=== PATIENT | female | born 1945 | race Caucasian/White ===

== ENCOUNTER 2021-01-19 17:30 | Emergency (ER) | payer OTHER, MEDICARE, BC ==
[2021-01-19] MEDS ORDERED: Acetaminophen 500 MG TAB ONE (18:38)
[2021-01-19 18:46] LABS: #Basophils 0.1 10x3/uL (0.0-0.2); #Eosinphils 0.2 10x3/uL (0.0-0.5); #Monocytes 0.5 10x3/uL (0.0-1.1); #Neutrophils 3.7 10x3/uL (1.5-8.4); %Basophils 0.8 % (0.0-2.0); %Eosinophils 3.6 % (0.0-6.0); %Monocytes 7.7 % (0.0-10.0); %Neutrophils 55.7 % (40.0-75.0); Mean Corpuscular HGB CONC 33.8 g/dL (32.0-36.0); Mean Corpuscular Hemoglobin 30.5 pg (27.0-33.0); Mean Corpuscular Volume 90.3 fl (81.6-98.3); Mean Platelet Volume 9.6 fl (7.4-10.4); Platelet Count 174 10x3/uL (150-450); RBC Distribution Width 13.1 % (11.5-14.5); Red Blood Cell (RBC) Count 3.93 10x6/uL (3.90-5.03); White Blood Cell (WBC) Count 6.6 10x3/uL (3.5-10.5)
[2021-01-19 18:59] LABS: ALT (SGPT) 40 U/L (8-55); AST (SGOT) 42 U/L (5-34); Alkaline Phosphatase 117 U/L (40-110); Anion Gap 12 mmol/L (10-20); BUN (Urea Nitrogen) 11 mg/dL (9.8-20.1); Bilirubin, Total 0.5 mg/dL (0.2-1.2); Calc. Creatinine Clearance 0 mL/min (70-130); Calcium 10.3 mg/dL (7.8-10.44); Carbon Dioxide 27 mmol/L (23-31); Chloride 100 mmol/L (98-107); Globulin 2.4 g/dL (2.4-3.5); Glucose 98 mg/dL (83-110); Protein, Total 6.4 g/dL (5.8-8.1); Sodium 135 mmol/L (136-145)
== END 2021-01-19 19:23 | disposition home or self-care (01) ==
LOC: CSHERS 17:30
DX: S00.12XA Contusion of left eyelid and periocular area, initial encounter (principal); S60.512A Abrasion of left hand, initial encounter; W01.0XXA Fall on same level from slipping, tripping and stumbling without subsequent striking against object, initial encounter; J45.909 Unspecified asthma, uncomplicated; E03.9 Hypothyroidism, unspecified; I10 Essential (primary) hypertension; E87.1 Hypo-osmolality and hyponatremia
CPT/HCPCS: 70450; 72125; 80053; 85025; 93005; 93010

== ENCOUNTER 2021-03-29 10:39 | Outpatient (CLI) | payer MEDICARE, BC | END 2021-03-29 10:40 | disposition home or self-care (01) | LOC: CSHRAD 10:39 | PROVIDERS: ATTEND Neurological Surgery | DX: M54.12 Radiculopathy, cervical region (principal); M47.812 Spondylosis without myelopathy or radiculopathy, cervical region | CPT/HCPCS: 72050 ==

== ENCOUNTER 2021-07-06 19:49 | Inpatient (IN) | payer MEDICARE, BC ==
[2021-07-06 21:20] LABS: #Eosinphils 0.2 10x3/uL (0.0-0.5); #Monocytes 0.5 10x3/uL (0.0-1.1); #Neutrophils 4.7 10x3/uL (1.5-8.4); %Basophils 0.5 % (0.0-2.0); %Eosinophils 2.3 % (0.0-6.0); %Lymphocytes 16.2 % (18.0-47.0); %Monocytes 7.9 % (0.0-10.0); %Neutrophils 72.8 % (40.0-75.0); Hemoglobin 12.7 g/dL (12.0-15.5); Mean Corpuscular HGB CONC 35.1 g/dL (32.0-36.0); Mean Corpuscular Hemoglobin 30.2 pg (27.0-33.0); Mean Corpuscular Volume 86.2 fl (81.6-98.3); Mean Platelet Volume 9.5 fl (7.4-10.4); Platelet Count 166 10x3/uL (150-450); RBC Distribution Width 12.2 % (11.5-14.5); White Blood Cell (WBC) Count 6.4 10x3/uL (3.5-10.5)
[2021-07-06 21:40] LABS: ALT (SGPT) 24 U/L (8-55); AST (SGOT) 32 U/L (5-34); Alkaline Phosphatase 100 U/L (40-110); Anion Gap 16 mmol/L (10-20); BUN (Urea Nitrogen) 15 mg/dL (9.8-20.1); Bilirubin, Total 0.5 mg/dL (0.2-1.2); Calc. Creatinine Clearance 0 mL/min (70-130); Calcium 9.3 mg/dL (7.8-10.44); Carbon Dioxide 29 mmol/L (23-31); Chloride 85 mmol/L (98-107); Globulin 1.9 g/dL (2.4-3.5); Glucose 88 mg/dL (83-110); Potassium 3.7 mmol/L (3.5-5.1); Protein, Total 5.9 g/dL (5.8-8.1); Sodium 126 mmol/L (136-145)
[2021-07-06 21:46] LABS: Magnesium 1.6 mg/dL (1.6-2.6)
[2021-07-07] MEDS: Sodium Chloride 0.9% 1,000 ML IV SCH ×2 (00:18→16:49)
[2021-07-07 00:55] VITALS: BMI 20.2
[2021-07-07 04:29] LABS: #Eosinphils 0.2 10x3/uL (0.0-0.5); #Monocytes 0.6 10x3/uL (0.0-1.1); #Neutrophils 4.9 10x3/uL (1.5-8.4); %Basophils 0.3 % (0.0-2.0); %Eosinophils 2.5 % (0.0-6.0); %Lymphocytes 16.5 % (18.0-47.0); %Monocytes 8.7 % (0.0-10.0); %Neutrophils 71.6 % (40.0-75.0); Hemoglobin 12.2 g/dL (12.0-15.5); Mean Corpuscular HGB CONC 35.4 g/dL (32.0-36.0); Mean Corpuscular Hemoglobin 30.7 pg (27.0-33.0); Mean Corpuscular Volume 86.9 fl (81.6-98.3); Mean Platelet Volume 9.6 fl (7.4-10.4); Platelet Count 146 10x3/uL (150-450); Red Blood Cell (RBC) Count 3.97 10x6/uL (3.90-5.03); White Blood Cell (WBC) Count 6.8 10x3/uL (3.5-10.5)
[2021-07-07 04:53] LABS: Anion Gap 14 mmol/L (10-20); BUN (Urea Nitrogen) 10 mg/dL (9.8-20.1); Calc. Creatinine Clearance 78 mL/min (70-130); Calcium 8.9 mg/dL (7.8-10.44); Carbon Dioxide 28 mmol/L (23-31); Chloride 90 mmol/L (98-107); Glucose 93 mg/dL (83-110); Magnesium 1.4 mg/dL (1.6-2.6); Potassium 3.5 mmol/L (3.5-5.1); Sodium 128 mmol/L (136-145)
[2021-07-07] MEDS ORDERED: Potassium Chloride 20 MEQ in Premix Bag 1 BAG IVPB SCH (05:30)
[2021-07-07] MEDS: Thyroid 30 MG TAB PO SCH (06:21)
[2021-07-07] MEDS: Levothyroxine Sodium 25 MCG TAB PO SCH (06:21)
[2021-07-07] MEDS: Thiamine HCl 200 MG/2 ML VIAL SLOW IVP SCH ×2 (06:30→18:03)
[2021-07-07] MEDS ORDERED: RED YEAST RICE 600 MG PO SCH (09:00)
[2021-07-07] MEDS: Stress 600 With Zinc 1 TAB PO SCH ×2 (09:18→20:22)
[2021-07-07] MEDS: Multivit, Therapeutic 1 TAB PO SCH (09:18)
[2021-07-07] MEDS: Loratadine 10 MG TAB PO SCH (09:18)
[2021-07-07] MEDS: Ubidecarenone 50 MG CAP PO SCH (09:18)
[2021-07-07] MEDS: Amlodipine 5 MG TAB PO SCH (09:18)
[2021-07-07] MEDS: Bupropion 150 MG XL TAB PO SCH (09:18)
[2021-07-07] MEDS ORDERED: hydrALAZINE 20 MG/ML VIAL SLOW IVP PRN (10:19)
[2021-07-07] MEDS ORDERED: Magnesium 2 GM/50 ML(in water) 2 GM in Premix Bag 1 BAG IVPB SCH (10:30)
[2021-07-07] MEDS ORDERED: Potassium Chloride 20 MEQ TAB PO SCH (10:30)
[2021-07-07] MEDS: Enoxaparin Sodium 40 MG/0.4 ML SYRINGE SC SCH (11:10)
[2021-07-07 13:20] LABS: Bilirubin Neg (Negative); Blood, Urine Negative (Negative); Clarity Clear (Clear); Glucose, Urine (Dipstick) Normal (Negative); Ketone, Urine 5 mg/dL (Negative); Leukocyte Negative (Negative); Nitrite Negative (Negative); Protein, Urine (Dipstick) Negative (Neg-Trace); Urobilinogen Normal mg/dL (Less than 2)
[2021-07-07 13:22] LABS: Urine Culture Reflex No No
[2021-07-07 14:15] LABS: RBC/HPF 0-3 HPF (0-3); Squamous Epithelial 0-3 HPF (0-3); WBC/HPF 0-3 HPF (0-3)
[2021-07-07 14:16] LABS: Bacteria/HPF 1+ HPF (None Seen)
[2021-07-07] MEDS: Pramipexole Di-HCl 1 MG TAB PO SCH (20:22)
[2021-07-07] MEDS: Montelukast Sodium 10 mg Tablet PO SCH (20:22)
[2021-07-08 04:43] LABS: #Eosinphils 0.2 10x3/uL (0.0-0.5); #Monocytes 0.5 10x3/uL (0.0-1.1); #Neutrophils 3.2 10x3/uL (1.5-8.4); %Basophils 0.6 % (0.0-2.0); %Eosinophils 3.2 % (0.0-6.0); %Lymphocytes 23.2 % (18.0-47.0); %Monocytes 9.6 % (0.0-10.0); Hemoglobin 12.2 g/dL (12.0-15.5); Mean Corpuscular HGB CONC 35.1 g/dL (32.0-36.0); Mean Corpuscular Hemoglobin 30.6 pg (27.0-33.0); Mean Corpuscular Volume 87.2 fl (81.6-98.3); Mean Platelet Volume 9.4 fl (7.4-10.4); Platelet Count 157 10x3/uL (150-450); RBC Distribution Width 12.2 % (11.5-14.5); Red Blood Cell (RBC) Count 3.99 10x6/uL (3.90-5.03)
[2021-07-08 05:02] LABS: Anion Gap 14 mmol/L (10-20); BUN (Urea Nitrogen) 6 mg/dL (9.8-20.1); Calc. Creatinine Clearance 74 mL/min (70-130); Calcium 8.8 mg/dL (7.8-10.44); Carbon Dioxide 29 mmol/L (23-31); Chloride 93 mmol/L (98-107); Glucose 80 mg/dL (83-110); Potassium 3.9 mmol/L (3.5-5.1); Sodium 132 mmol/L (136-145)
[2021-07-08] MEDS: Thiamine HCl 200 MG/2 ML VIAL SLOW IVP SCH ×2 (06:47→20:59)
[2021-07-08] MEDS: Levothyroxine Sodium 25 MCG TAB PO SCH (06:48)
[2021-07-08] MEDS: Thyroid 30 MG TAB PO SCH (06:48)
[2021-07-08] MEDS: Sodium Chloride 0.9% 1,000 ML IV SCH (07:44)
[2021-07-08] MEDS ORDERED: Meclizine HCl 25 MG TAB PO PRN (08:04)
[2021-07-08] MEDS ORDERED: Meclizine HCl 12.5 MG TAB PO SCH (08:15)
[2021-07-08] MEDS ORDERED: Meclizine HCl 12.5 MG TAB PO PRN (08:15)
[2021-07-08] MEDS: Ubidecarenone 50 MG CAP PO SCH (08:43)
[2021-07-08] MEDS: Enoxaparin Sodium 40 MG/0.4 ML SYRINGE SC SCH (08:44)
[2021-07-08] MEDS: Bupropion 150 MG XL TAB PO SCH (08:44)
[2021-07-08] MEDS: Amlodipine 5 MG TAB PO SCH (08:44)
[2021-07-08] MEDS: Megestrol Acetate 400 MG/10 ML UDCUP PO SCH (08:44)
[2021-07-08] MEDS: Loratadine 10 MG TAB PO SCH (08:45)
[2021-07-08] MEDS: Multivit, Therapeutic 1 TAB PO SCH (08:45)
[2021-07-08] MEDS: Stress 600 With Zinc 1 TAB PO SCH ×2 (08:46→20:55)
[2021-07-08 13:40] LABS: Potassium, Urine 11.9 mmol/L
[2021-07-08] MEDS: Pramipexole Di-HCl 1 MG TAB PO SCH (20:55)
[2021-07-08] MEDS: Montelukast Sodium 10 mg Tablet PO SCH (20:55)
[2021-07-09] MEDS ORDERED: Melatonin 3 MG TAB PO SCH (01:00)
[2021-07-09] MEDS: Thiamine HCl 200 MG/2 ML VIAL SLOW IVP SCH ×2 (06:47→21:07)
[2021-07-09] MEDS: Levothyroxine Sodium 25 MCG TAB PO SCH (06:47)
[2021-07-09] MEDS: Thyroid 30 MG TAB PO SCH (06:47)
[2021-07-09] MEDS: Sodium Chloride 0.9% 1,000 ML IV SCH ×2 (08:13→21:57)
[2021-07-09 08:34] LABS: #Eosinphils 0.1 10x3/uL (0.0-0.5); #Monocytes 0.6 10x3/uL (0.0-1.1); #Neutrophils 3.7 10x3/uL (1.5-8.4); %Basophils 0.5 % (0.0-2.0); %Lymphocytes 26.1 % (18.0-47.0); %Monocytes 9.2 % (0.0-10.0); %Neutrophils 61.9 % (40.0-75.0); Hemoglobin 12.3 g/dL (12.0-15.5); Mean Corpuscular HGB CONC 36.5 g/dL (32.0-36.0); Mean Corpuscular Hemoglobin 30.4 pg (27.0-33.0); Mean Corpuscular Volume 83.2 fl (81.6-98.3); Mean Platelet Volume 9.2 fl (7.4-10.4); Platelet Count 148 10x3/uL (150-450); RBC Distribution Width 12.2 % (11.5-14.5); Red Blood Cell (RBC) Count 4.05 10x6/uL (3.90-5.03)
[2021-07-09 08:51] LABS: Anion Gap 12 mmol/L (10-20); BUN (Urea Nitrogen) 9 mg/dL (9.8-20.1); Calc. Creatinine Clearance 74 mL/min (70-130); Carbon Dioxide 29 mmol/L (23-31); Chloride 91 mmol/L (98-107); Glucose 100 mg/dL (83-110); Magnesium 1.6 mg/dL (1.6-2.6); Sodium 128 mmol/L (136-145)
[2021-07-09] MEDS ORDERED: Iopamidol 370 76% 100 ML VIAL ONE (09:22)
[2021-07-09] MEDS: Amlodipine 5 MG TAB PO SCH (10:00)
[2021-07-09] MEDS: Ubidecarenone 50 MG CAP PO SCH (10:00)
[2021-07-09] MEDS: Multivit, Therapeutic 1 TAB PO SCH (10:00)
[2021-07-09] MEDS: Enoxaparin Sodium 40 MG/0.4 ML SYRINGE SC SCH (10:01)
[2021-07-09] MEDS: Bupropion 150 MG XL TAB PO SCH (10:14)
[2021-07-09] MEDS: Loratadine 10 MG TAB PO SCH (10:14)
[2021-07-09] MEDS: Stress 600 With Zinc 1 TAB PO SCH ×2 (10:15→21:38)
[2021-07-09] MEDS: Megestrol Acetate 400 MG/10 ML UDCUP PO SCH (13:50)
[2021-07-09] MEDS ORDERED: Furosemide 40 MG/4 ML VIAL SLOW IVP SCH (16:00)
[2021-07-09] MEDS: Montelukast Sodium 10 mg Tablet PO SCH (21:38)
[2021-07-09] MEDS: Pramipexole Di-HCl 1 MG TAB PO SCH (21:38)
[2021-07-09] MEDS ORDERED: Melatonin 3 MG TAB PO PRN (22:01)
[2021-07-09] MEDS ORDERED: traZODone HCl 50 MG TAB PO SCH (22:45)
[2021-07-10] MEDS: Thiamine HCl 200 MG/2 ML VIAL SLOW IVP SCH ×2 (05:31→18:32)
[2021-07-10] MEDS: Thyroid 30 MG TAB PO SCH (05:32)
[2021-07-10] MEDS: Levothyroxine Sodium 25 MCG TAB PO SCH (05:32)
[2021-07-10 07:01] LABS: Anion Gap 17 mmol/L (10-20); BUN (Urea Nitrogen) 9 mg/dL (9.8-20.1); Calc. Creatinine Clearance 71 mL/min (70-130); Calcium 9.2 mg/dL (7.8-10.44); Carbon Dioxide 29 mmol/L (23-31); Chloride 90 mmol/L (98-107); Glucose 79 mg/dL (83-110); Potassium 4.2 mmol/L (3.5-5.1); Sodium 132 mmol/L (136-145)
[2021-07-10 07:16] LABS: Mean Corpuscular HGB CONC 36.7 g/dL (32.0-36.0); Mean Corpuscular Hemoglobin 30.6 pg (27.0-33.0); Mean Corpuscular Volume 83.3 fl (81.6-98.3); Mean Platelet Volume 10.4 fl (7.4-10.4); RBC Distribution Width 12.4 % (11.5-14.5); Red Blood Cell (RBC) Count 4.25 10x6/uL (3.90-5.03); White Blood Cell (WBC) Count 8.1 10x3/uL (3.5-10.5)
[2021-07-10 07:17] LABS: #Eosinphils 0.3 10x3/uL (0.0-0.5); #Monocytes 0.6 10x3/uL (0.0-1.1); #Neutrophils 5.6 10x3/uL (1.5-8.4); %Basophils 0.5 % (0.0-2.0); %Eosinophils 4.2 % (0.0-6.0); %Lymphocytes 18.6 % (18.0-47.0); %Monocytes 7.8 % (0.0-10.0); %Neutrophils 68.5 % (40.0-75.0)
[2021-07-10 07:18] LABS: Platelet Count 127 10x3/uL (150-450)
[2021-07-10] MEDS: Multivit, Therapeutic 1 TAB PO SCH (08:35)
[2021-07-10] MEDS: Ubidecarenone 50 MG CAP PO SCH (08:35)
[2021-07-10] MEDS: Loratadine 10 MG TAB PO SCH (08:35)
[2021-07-10] MEDS: Stress 600 With Zinc 1 TAB PO SCH ×2 (08:36→21:52)
[2021-07-10] MEDS: Megestrol Acetate 400 MG/10 ML UDCUP PO SCH (08:36)
[2021-07-10] MEDS: Enoxaparin Sodium 40 MG/0.4 ML SYRINGE SC SCH (08:36)
[2021-07-10] MEDS: Amlodipine 5 MG TAB PO SCH (08:36)
[2021-07-10] MEDS: Bupropion 150 MG XL TAB PO SCH (08:36)
[2021-07-10] MEDS: Furosemide 40 MG/4 ML VIAL SLOW IVP SCH (08:36)
[2021-07-10] MEDS ORDERED: Furosemide 40 MG/4 ML VIAL SLOW IVP SCH (09:00)
[2021-07-10] MEDS ORDERED: Melatonin 3 MG TAB PO SCH (21:00)
[2021-07-10] MEDS: Montelukast Sodium 10 mg Tablet PO SCH (21:52)
[2021-07-11] MEDS: Thiamine HCl 200 MG/2 ML VIAL SLOW IVP SCH (05:19)
[2021-07-11] MEDS: Thyroid 30 MG TAB PO SCH (05:19)
[2021-07-11] MEDS: Levothyroxine Sodium 25 MCG TAB PO SCH (05:19)
[2021-07-11] MEDS: Loratadine 10 MG TAB PO SCH (09:22)
[2021-07-11] MEDS: Amlodipine 5 MG TAB PO SCH (09:22)
[2021-07-11] MEDS: Megestrol Acetate 400 MG/10 ML UDCUP PO SCH (09:22)
[2021-07-11] MEDS: Furosemide 40 MG/4 ML VIAL SLOW IVP SCH (09:22)
[2021-07-11] MEDS: Enoxaparin Sodium 40 MG/0.4 ML SYRINGE SC SCH (09:22)
[2021-07-11] MEDS: Multivit, Therapeutic 1 TAB PO SCH (09:22)
[2021-07-11] MEDS: Ubidecarenone 50 MG CAP PO SCH (09:22)
[2021-07-11] MEDS: Stress 600 With Zinc 1 TAB PO SCH (09:22)
[2021-07-11 13:32] VITALS: TEMP 97.7
[2021-07-11 16:20] VITALS: BP 112/58
== END 2021-07-11 19:15 | DRG 92 ==
LOC: CSHERS 19:49 → OBSVTOIN 23:46 → CSHTELE 23:46
PROVIDERS: ADMIT Family Medicine; ATTEND Family Medicine
DX: G92.8 Other toxic encephalopathy (principal); E87.1 Hypo-osmolality and hyponatremia; J98.11 Atelectasis; N39.0 Urinary tract infection, site not specified; G95.9 Disease of spinal cord, unspecified; E44.0 Moderate protein-calorie malnutrition; E78.5 Hyperlipidemia, unspecified; I10 Essential (primary) hypertension; R53.81 Other malaise; R29.6 Repeated falls; G47.00 Insomnia, unspecified; E03.9 Hypothyroidism, unspecified; F32.A Depression, unspecified; E86.0 Dehydration; R40.0 Somnolence; R09.02 Hypoxemia; R45.1 Restlessness and agitation; E87.70 Fluid overload, unspecified; F03.90 Unspecified dementia, unspecified severity, without behavioral disturbance, psychotic disturbance, mood disturbance, and anxiety; T50.995A Adverse effect of other drugs, medicaments and biological substances, initial encounter; Z20.822 Contact with and (suspected) exposure to COVID-19; Z98.890 Other specified postprocedural states; Z98.1 Arthrodesis status; Z79.899 Other long term (current) drug therapy; Z79.890 Hormone replacement therapy; Z88.2 Allergy status to sulfonamides; Z88.1 Allergy status to other antibiotic agents; Z88.5 Allergy status to narcotic agent; Z88.0 Allergy status to penicillin; Z88.8 Allergy status to other drugs, medicaments and biological substances; Z91.018 Allergy to other foods; Z91.81 History of falling; Z90.710 Acquired absence of both cervix and uterus; Z68.20 Body mass index [BMI] 20.0-20.9, adult
CPT/HCPCS: 36415; 36416; 70450; 70551; 71045; 71275; 72125; 80048; 80053; 81001; 82436; 83735; 83930; 83935; 84133; 84300; 84443; 85025; 87086; 94760; 94799; 96360; 96361; 96374; 96375; 99213; G0378; G0463; J1650; J1940; J1956; J3411; J3475; J3480; J3490; J7050; Q9967; U0003; U0005

== ENCOUNTER 2021-07-12 23:41 | Inpatient (IN) | payer MEDICARE, BC ==
[2021-07-13 00:32] LABS: #Basophils 0.1 10x3/uL (0.0-0.2); #Eosinphils 1.2 10x3/uL (0.0-0.5); #Monocytes 0.6 10x3/uL (0.0-1.1); #Neutrophils 4.3 10x3/uL (1.5-8.4); %Basophils 0.7 % (0.0-2.0); %Eosinophils 15.3 % (0.0-6.0); %Lymphocytes 19.4 % (18.0-47.0); %Monocytes 7.9 % (0.0-10.0); %Neutrophils 56.4 % (40.0-75.0); Hemoglobin 13.8 g/dL (12.0-15.5); Mean Corpuscular Hemoglobin 30.5 pg (27.0-33.0); Mean Platelet Volume 9.1 fl (7.4-10.4); Platelet Count 208 10x3/uL (150-450); RBC Distribution Width 11.9 % (11.5-14.5); Red Blood Cell (RBC) Count 4.53 10x6/uL (3.90-5.03); White Blood Cell (WBC) Count 7.6 10x3/uL (3.5-10.5)
[2021-07-13 00:46] LABS: Acetaminophen Less than 10.0 mcg/mL (10.0-30.0); Alcohol Less than 10 mg/dL (Less than 10); CK (CPK) 38 U/L (29-168); Lipase 16 U/L (8-78); Salicylate Less than 8.0 mg/dL (15.0-30.0)
[2021-07-13 00:47] LABS: ALT (SGPT) 24 U/L (8-55); AST (SGOT) 27 U/L (5-34); Albumin 4.3 g/dL (3.4-4.8); Alkaline Phosphatase 97 U/L (40-110); Anion Gap 15 mmol/L (10-20); BUN (Urea Nitrogen) 15 mg/dL (9.8-20.1); Bilirubin, Total 0.6 mg/dL (0.2-1.2); Calc. Creatinine Clearance 0 mL/min (70-130); Calcium 9.9 mg/dL (7.8-10.44); Carbon Dioxide 36 mmol/L (23-31); Chloride 80 mmol/L (98-107); Globulin 2.3 g/dL (2.4-3.5); Glucose 112 mg/dL (83-110); Potassium 3.8 mmol/L (3.5-5.1); Protein, Total 6.6 g/dL (5.8-8.1); Sodium 127 mmol/L (136-145)
[2021-07-13 01:20] LABS: Actual Bicarbonate (HCO3a) 36.6 mEq/L (22-28); Base Excess (BEa) 9.3 mEq/L (-2.0 to +3.0); CO2 Tension 61.8 mmHg (35.0-45.0); Carboxyhemoglobin (COHb) 0.6 gm% (0.0-3.0); Hemoglobin (Hb) 13.6 g/dL (12.0-16.0); O2 Tension (PaO2), arterial 69.5 mmHg (> 70.0); Potassium - ABG Lab 3.7 mmol/L (3.70-5.30); Puncture Site LRA; pH, Arterial 7.39 (7.35-7.45)
[2021-07-13 01:26] LABS: Bilirubin Neg (Negative); Blood, Urine 10 (Negative); Clarity Clear (Clear); Glucose, Urine (Dipstick) Normal (Negative); Ketone, Urine Negative (Negative); Leukocyte 500 (Negative); Nitrite Negative (Negative); Protein, Urine (Dipstick) 15 mg/dl (Neg-Trace); Urobilinogen Normal mg/dL (Less than 2)
[2021-07-13 01:33] LABS: Amphetamine Not Detected (NotDetected); Barbiturates Screen Not Detected (NotDetected); Benzodiazepine Screen Not Detected (NotDetected); Cocaine Metabolite Screen Not Detected (NotDetected); Methadone Not Detected (NotDetected); Methamphetamine Not Detected (NotDetected); Opiate Screen Not Detected (NotDetected); Oxycodone Screen Not Detected (NotDetected); Phencyclidine (PCP) Not Detected (NotDetected); THC/Cannabinoid Screen Not Detected (NotDetected); Tricyclic Screen Not Detected (NotDetected)
[2021-07-13 01:37] LABS: Bacteria/HPF Rare-Few HPF (None Seen); RBC/HPF 0-3 HPF (0-3); Renal Epithelial 0-3 HPF (None Seen); Transitional Epithelial 0-3 HPF (None Seen); WBC/HPF 21-50 HPF (0-3)
[2021-07-13 02:16] LABS: SARS-CoV-2 NAA Rapid Test Not Detected (NotDetected)
[2021-07-13] MEDS ORDERED: Senokot S 8.6-50 MG TAB PO PRN (02:20)
[2021-07-13] MEDS ORDERED: Ondansetron PF 4 MG/2 ML Vial IVP PRN (02:20)
[2021-07-13] MEDS ORDERED: Calcium Carbonate 500 MG ChewTAB PO PRN (02:20)
[2021-07-13] MEDS ORDERED: Acetaminophen 325 MG TAB PO PRN (02:20)
[2021-07-13] MEDS ORDERED: Aspirin 300 MG Suppository ONE ×2 (02:23→02:24)
[2021-07-13] MEDS ORDERED: cefTRIAXone\\ROCEPHIN 1 GM VIAL ONE (02:27)
[2021-07-13] MEDS ORDERED: Levofloxacin 500 mg/D5W 100 ml Premix Bag ONE (04:47)
[2021-07-13 04:51] LABS: Legionella Urinary Ag Negative (Negative); Strep pneumo Urine Ag NEGATIVE (NEGATIVE)
[2021-07-13] MEDS: Levothyroxine Sodium 25 MCG TAB PO SCH (05:22)
[2021-07-13 07:58] LABS: Actual Bicarbonate (HCO3a) 35.3 mEq/L (22-28); Base Excess (BEa) 8.2 mEq/L (-2.0 to +3.0); CO2 Tension 61.1 mmHg (35.0-45.0); Calcium, Ionized (arterial) 1.19 mmol/L (1.12-1.30); Carboxyhemoglobin (COHb) 0.6 gm% (0.0-3.0); Hemoglobin (Hb) 12.3 g/dL (12.0-16.0); O2 Tension (PaO2), arterial 86.1 mmHg (> 70.0); Potassium - ABG Lab 3.7 mmol/L (3.70-5.30); Puncture Site LRA; pH, Arterial 7.38 (7.35-7.45)
[2021-07-13 08:00] LABS: ALV-art Gradient 51.425 mmHg (0-20)
[2021-07-13] MEDS: Enoxaparin Sodium 40 MG/0.4 ML SYRINGE SC SCH (09:05)
[2021-07-13] MEDS: Famotidine/PF 20 mg/2ml Vial SLOW IVP SCH ×2 (09:15→21:52)
[2021-07-13] MEDS: Amlodipine 5 MG TAB PO SCH (09:28)
[2021-07-13] MEDS: Ubidecarenone 50 MG CAP PO SCH (09:29)
[2021-07-13] MEDS: Multivit, Therapeutic 1 TAB PO SCH (09:30)
[2021-07-13] MEDS: Stress 600 With Zinc 1 TAB PO SCH ×2 (09:30→21:52)
[2021-07-13 11:56] LABS: Anion Gap 13 mmol/L (10-20); BUN (Urea Nitrogen) 15 mg/dL (9.8-20.1); Calc. Creatinine Clearance 71 mL/min (70-130); Calcium 9.1 mg/dL (7.8-10.44); Carbon Dioxide 30 mmol/L (23-31); Chloride 85 mmol/L (98-107); Glucose 94 mg/dL (83-110); Magnesium 1.7 mg/dL (1.6-2.6); Potassium 3.9 mmol/L (3.5-5.1); Sodium 124 mmol/L (136-145)
[2021-07-13 17:01] LABS: Sodium 126 mmol/L (136-145)
[2021-07-13] MEDS: Montelukast Sodium 10 mg Tablet PO SCH (21:52)
[2021-07-14] MEDS ORDERED: Levofloxacin 500 mg/D5W 100 ml Premix Bag ONE (02:47)
[2021-07-14] MEDS: Levothyroxine Sodium 25 MCG TAB PO SCH (06:35)
[2021-07-14 08:05] LABS: Anion Gap 14 mmol/L (10-20); BUN (Urea Nitrogen) 10 mg/dL (9.8-20.1); Calc. Creatinine Clearance 85 mL/min (70-130); Calcium 9.1 mg/dL (7.8-10.44); Carbon Dioxide 32 mmol/L (23-31); Chloride 86 mmol/L (98-107); Glucose 91 mg/dL (83-110); Potassium 3.9 mmol/L (3.5-5.1); Sodium 128 mmol/L (136-145)
[2021-07-14] MEDS: Ubidecarenone 50 MG CAP PO SCH (08:40)
[2021-07-14] MEDS: Famotidine/PF 20 mg/2ml Vial SLOW IVP SCH ×2 (08:40→20:05)
[2021-07-14] MEDS: Stress 600 With Zinc 1 TAB PO SCH ×2 (08:40→20:05)
[2021-07-14] MEDS: Enoxaparin Sodium 40 MG/0.4 ML SYRINGE SC SCH (08:41)
[2021-07-14] MEDS: Multivit, Therapeutic 1 TAB PO SCH (08:41)
[2021-07-14] MEDS: Amlodipine 5 MG TAB PO SCH (08:41)
[2021-07-14 10:51] LABS: Actual Bicarbonate (HCO3a) 34.1 mEq/L (22-28); Base Excess (BEa) 8.1 mEq/L (-2.0 to +3.0); CO2 Tension 53.6 mmHg (35.0-45.0); Calcium, Ionized (arterial) 1.17 mmol/L (1.12-1.30); Carboxyhemoglobin (COHb) 1.1 gm% (0.0-3.0); Hemoglobin (Hb) 13.4 g/dL (12.0-16.0); Potassium - ABG Lab 3.7 mmol/L (3.70-5.30); Puncture Site LRA; pH, Arterial 7.42 (7.35-7.45)
[2021-07-14] MEDS: Montelukast Sodium 10 mg Tablet PO SCH (20:05)
[2021-07-15] MEDS ORDERED: Levofloxacin 500 mg/D5W 100 ml Premix Bag ONE ×2 (03:49)
[2021-07-15 04:43] LABS: Anion Gap 12 mmol/L (10-20); BUN (Urea Nitrogen) 17 mg/dL (9.8-20.1); Calc. Creatinine Clearance 77 mL/min (70-130); Calcium 9.5 mg/dL (7.8-10.44); Carbon Dioxide 33 mmol/L (23-31); Chloride 86 mmol/L (98-107); Glucose 95 mg/dL (83-110); Sodium 127 mmol/L (136-145)
[2021-07-15] MEDS: Levothyroxine Sodium 25 MCG TAB PO SCH (06:47)
[2021-07-15] MEDS: Ubidecarenone 50 MG CAP PO SCH (08:46)
[2021-07-15] MEDS: Amlodipine 5 MG TAB PO SCH (08:47)
[2021-07-15] MEDS: Multivit, Therapeutic 1 TAB PO SCH (08:47)
[2021-07-15] MEDS: Famotidine/PF 20 mg/2ml Vial SLOW IVP SCH ×2 (08:49→22:16)
[2021-07-15] MEDS: Enoxaparin Sodium 40 MG/0.4 ML SYRINGE SC SCH (08:49)
[2021-07-15] MEDS: Stress 600 With Zinc 1 TAB PO SCH ×2 (09:12→22:18)
[2021-07-15 11:30] LABS: Base Excess (BEa) 9.4 mEq/L (-2.0 to +3.0); CO2 Tension 65.6 mmHg (35.0-45.0); Carboxyhemoglobin (COHb) 0.4 gm% (0.0-3.0); Hemoglobin (Hb) 12.4 g/dL (12.0-16.0); O2 Tension (PaO2), arterial 102.7 mmHg (> 70.0); Potassium - ABG Lab 3.7 mmol/L (3.70-5.30); Puncture Site RRA; pH, Arterial 7.37 (7.35-7.45)
[2021-07-15 13:32] LABS: Lactic Acid 1.1 mmol/L (0.5-2.2)
[2021-07-15 14:28] LABS: Anion Gap 17 mmol/L (10-20); BUN (Urea Nitrogen) 17 mg/dL (9.8-20.1); Calc. Creatinine Clearance 72 mL/min (70-130); Calcium 9.4 mg/dL (7.8-10.44); Carbon Dioxide 26 mmol/L (23-31); Chloride 88 mmol/L (98-107); Glucose 96 mg/dL (83-110); Potassium 4.3 mmol/L (3.5-5.1); Sodium 127 mmol/L (136-145)
[2021-07-15 15:02] LABS: Bilirubin Neg (Negative); Blood, Urine 150 (Negative); Clarity Clear (Clear); Glucose, Urine (Dipstick) Normal (Negative); Ketone, Urine 5 mg/dL (Negative); Leukocyte 100 (Negative); Nitrite Negative (Negative); Protein, Urine (Dipstick) 15 mg/dl (Neg-Trace)
[2021-07-15 15:16] LABS: Squamous Epithelial 0-3 HPF (0-3); Urine Culture Reflex No No; WBC/HPF 0-3 HPF (0-3)
[2021-07-15 15:17] LABS: Bacteria/HPF None Seen HPF (None Seen)
[2021-07-15] MEDS: Sodium Chloride 0.9% 1,000 ML IV SCH (16:20)
[2021-07-15 19:01] LABS: Actual Bicarbonate (HCO3v) 37 mEq/L (22-28); Base Excess 9.8 mEq/L (-2.0 to +3.0); Chloride (VBG) 86 mmol/L (98-106); Hemoglobin (Hb) 12.8 g/dL (11.7-16.1); Potassium (VBG) 4.11 mmol/L (3.70-5.30); Sodium 123.3 mmol/L (133-146); pH (venous) 7.41 (7.32-7.43)
[2021-07-15 19:09] LABS: Calcium, Ionized (venous) 1.12 mmol/L (1.16-1.32)
[2021-07-15] MEDS: Montelukast Sodium 10 mg Tablet PO SCH (22:16)
[2021-07-16 04:27] LABS: #Eosinphils 0.2 10x3/uL (0.0-0.5); #Monocytes 0.9 10x3/uL (0.0-1.1); #Neutrophils 5.2 10x3/uL (1.5-8.4); %Basophils 0.5 % (0.0-2.0); %Eosinophils 1.8 % (0.0-6.0); %Lymphocytes 24.7 % (18.0-47.0); %Monocytes 10.4 % (0.0-10.0); %Neutrophils 61.3 % (40.0-75.0); Hemoglobin 11.6 g/dL (12.0-15.5); Mean Corpuscular Hemoglobin 30.5 pg (27.0-33.0); Mean Corpuscular Volume 84.7 fl (81.6-98.3); Mean Platelet Volume 10.1 fl (7.4-10.4); White Blood Cell (WBC) Count 8.5 10x3/uL (3.5-10.5)
[2021-07-16 04:29] LABS: Platelet Count 178 10x3/uL (150-450)
[2021-07-16 04:44] LABS: Anion Gap 16 mmol/L (10-20); BUN (Urea Nitrogen) 17 mg/dL (9.8-20.1); Calc. Creatinine Clearance 79 mL/min (70-130); Calcium 8.9 mg/dL (7.8-10.44); Carbon Dioxide 27 mmol/L (23-31); Chloride 90 mmol/L (98-107); Glucose 79 mg/dL (83-110); Potassium 4.7 mmol/L (3.5-5.1); Sodium 128 mmol/L (136-145)
[2021-07-16 04:46] LABS: Platelet Morphology Comment Appears Adequate; RBC Morphology Normal
[2021-07-16] MEDS: Sodium Chloride 0.9% 1,000 ML IV SCH ×2 (05:54→18:07)
[2021-07-16] MEDS: Levothyroxine Sodium 25 MCG TAB PO SCH (05:59)
[2021-07-16] MEDS: Famotidine/PF 20 mg/2ml Vial SLOW IVP SCH ×2 (08:37→20:46)
[2021-07-16] MEDS: Multivit, Therapeutic 1 TAB PO SCH (08:37)
[2021-07-16] MEDS: Amlodipine 5 MG TAB PO SCH (08:37)
[2021-07-16] MEDS: Enoxaparin Sodium 40 MG/0.4 ML SYRINGE SC SCH (08:37)
[2021-07-16] MEDS: Ubidecarenone 50 MG CAP PO SCH (08:37)
[2021-07-16] MEDS: Stress 600 With Zinc 1 TAB PO SCH ×2 (08:38→20:46)
[2021-07-16] MEDS: Montelukast Sodium 10 mg Tablet PO SCH (20:46)
[2021-07-17] MEDS: Levothyroxine Sodium 25 MCG TAB PO SCH (07:33)
[2021-07-17] MEDS: Ubidecarenone 50 MG CAP PO SCH (08:10)
[2021-07-17] MEDS: Multivit, Therapeutic 1 TAB PO SCH (08:10)
[2021-07-17] MEDS: Famotidine/PF 20 mg/2ml Vial SLOW IVP SCH ×2 (08:10→19:45)
[2021-07-17] MEDS: Enoxaparin Sodium 40 MG/0.4 ML SYRINGE SC SCH (08:11)
[2021-07-17] MEDS: Sodium Chloride 0.9% 1,000 ML IV SCH ×2 (08:11→23:00)
[2021-07-17] MEDS: Stress 600 With Zinc 1 TAB PO SCH ×2 (08:11→19:45)
[2021-07-17] MEDS: Amlodipine 5 MG TAB PO SCH (08:12)
[2021-07-17 12:12] LABS: ANA Symphony (Qualitative) Negative (Negative); ANA Symphony (Quantitative) Less than 0.1 Ratio (< 0.7 Negative); dsDNA IgG Antibody 1.1 IU/mL (<10 Negative)
[2021-07-17] MEDS: Montelukast Sodium 10 mg Tablet PO SCH (19:45)
[2021-07-18] MEDS: Levothyroxine Sodium 25 MCG TAB PO SCH (06:42)
[2021-07-18] MEDS: Famotidine/PF 20 mg/2ml Vial SLOW IVP SCH ×2 (08:11→22:57)
[2021-07-18] MEDS: Enoxaparin Sodium 40 MG/0.4 ML SYRINGE SC SCH (08:11)
[2021-07-18] MEDS: Ubidecarenone 50 MG CAP PO SCH (08:12)
[2021-07-18] MEDS: Multivit, Therapeutic 1 TAB PO SCH (08:12)
[2021-07-18] MEDS: Stress 600 With Zinc 1 TAB PO SCH ×2 (08:12→22:57)
[2021-07-18] MEDS: Amlodipine 5 MG TAB PO SCH (08:12)
[2021-07-18] MEDS: Sodium Chloride 0.9% 1,000 ML IV SCH (14:20)
[2021-07-18 15:10] LABS: Anion Gap 13 mmol/L (10-20); BUN (Urea Nitrogen) 10 mg/dL (9.8-20.1); Calc. Creatinine Clearance 93 mL/min (70-130); Calcium 8.7 mg/dL (7.8-10.44); Carbon Dioxide 24 mmol/L (23-31); Chloride 99 mmol/L (98-107); Glucose 90 mg/dL (83-110); Sodium 132 mmol/L (136-145)
[2021-07-18] MEDS ORDERED: Dexmedetomidine In 0.9 % NaCl 100 ML ONE (22:04)
[2021-07-18] MEDS: Dexmedetomidine In 0.9 % NaCl 400 MCG in Premix Bag 1 BAG IVPB PRN (22:10)
[2021-07-18] MEDS: Montelukast Sodium 10 mg Tablet PO SCH (22:57)
[2021-07-19 03:53] LABS: Anion Gap 11 mmol/L (10-20); BUN (Urea Nitrogen) 10 mg/dL (9.8-20.1); Calc. Creatinine Clearance 101 mL/min (70-130); Calcium 8.6 mg/dL (7.8-10.44); Carbon Dioxide 27 mmol/L (23-31); Chloride 98 mmol/L (98-107); Glucose 87 mg/dL (83-110); Sodium 132 mmol/L (136-145)
[2021-07-19] MEDS: Sodium Chloride 0.9% 1,000 ML IV SCH ×2 (05:09→12:12)
[2021-07-19] MEDS: Levothyroxine Sodium 25 MCG TAB PO SCH (06:44)
[2021-07-19] MEDS: Amlodipine 5 MG TAB PO SCH (08:13)
[2021-07-19] MEDS: Enoxaparin Sodium 40 MG/0.4 ML SYRINGE SC SCH (08:13)
[2021-07-19] MEDS: Stress 600 With Zinc 1 TAB PO SCH ×2 (08:14→21:27)
[2021-07-19] MEDS: Ubidecarenone 50 MG CAP PO SCH (08:14)
[2021-07-19] MEDS: Multivit, Therapeutic 1 TAB PO SCH (08:14)
[2021-07-19] MEDS: Famotidine/PF 20 mg/2ml Vial SLOW IVP SCH ×2 (08:15→22:26)
[2021-07-19] MEDS ORDERED: PROPOFOL 20 ML ONE (11:43)
[2021-07-19] MEDS ORDERED: Fentanyl 100 MCG/2 ML VIAL ONE (11:43)
[2021-07-19] MEDS ORDERED: Ondansetron PF 4 MG/2 ML Vial ONE (11:48)
[2021-07-19] MEDS ORDERED: Rocuronium Bromide 10 MG/ML (10ML VIAL) ONE (11:49)
[2021-07-19] MEDS ORDERED: Clindamycin/D5W 600 MG in Premix Bag 1 BAG IVPB SCH (12:00)
[2021-07-19] MEDS ORDERED: Bupropion 150 MG XL TAB PO SCH (12:00)
[2021-07-19] MEDS ORDERED: PHENYLEPHRINE-NS 100 MCG/ML 10 ML SYRINGE ONE (12:04)
[2021-07-19] MEDS ORDERED: Glycopyrrolate 0.2 MG/ML 5 ML SYRINGE ONE (12:29)
[2021-07-19] MEDS ORDERED: Lidocaine 1% w/Epinephrine 1:100K 20 ML VIAL ONE (12:30)
[2021-07-19] MEDS ORDERED: Lidocaine 1% PF 5 ML VIAL ONE (12:30)
[2021-07-19] MEDS ORDERED: ePHEDrine Sulfate 50 MG/10 ML VIAL ONE (12:35)
[2021-07-19] MEDS: Dexmedetomidine In 0.9 % NaCl 400 MCG in Premix Bag 1 BAG IVPB PRN (13:20)
[2021-07-19 14:06] LABS: Actual Bicarbonate (HCO3a) 22.6 mEq/L (22-28); Base Excess (BEa) -1.1 mEq/L (-2.0 to +3.0); CO2 Tension 34.4 mmHg (35.0-45.0); Calcium, Ionized (arterial) 1.16 mmol/L (1.12-1.30); Carboxyhemoglobin (COHb) 0.5 gm% (0.0-3.0); Hemoglobin (Hb) 11.8 g/dL (12.0-16.0); O2 Tension (PaO2), arterial 173.4 mmHg (> 70.0); Potassium - ABG Lab 3.9 mmol/L (3.70-5.30); Puncture Site RRA; pH, Arterial 7.44 (7.35-7.45)
[2021-07-19] MEDS: Montelukast Sodium 10 mg Tablet PO SCH (21:27)
[2021-07-20] MEDS: Sodium Chloride 0.9% 1,000 ML IV SCH (06:21)
[2021-07-20] MEDS: Levothyroxine Sodium 25 MCG TAB PO SCH (06:21)
[2021-07-20] MEDS: Dexmedetomidine In 0.9 % NaCl 400 MCG in Premix Bag 1 BAG IVPB PRN ×2 (06:24→19:50)
[2021-07-20] MEDS: Stress 600 With Zinc 1 TAB PO SCH ×2 (08:10→19:49)
[2021-07-20] MEDS: Ubidecarenone 50 MG CAP PO SCH (08:10)
[2021-07-20] MEDS: Multivit, Therapeutic 1 TAB PO SCH (08:10)
[2021-07-20] MEDS: Amlodipine 5 MG TAB PO SCH (08:10)
[2021-07-20] MEDS: Bupropion 150 MG XL TAB PO SCH (08:10)
[2021-07-20] MEDS: Enoxaparin Sodium 40 MG/0.4 ML SYRINGE SC SCH (08:10)
[2021-07-20 09:28] LABS: ALT (SGPT) 11 U/L (8-55); AST (SGOT) 14 U/L (5-34); Alkaline Phosphatase 73 U/L (40-110); Anion Gap 13 mmol/L (10-20); BUN (Urea Nitrogen) 9 mg/dL (9.8-20.1); Bilirubin, Total 0.8 mg/dL (0.2-1.2); Calc. Creatinine Clearance 92 mL/min (70-130); Calcium 8.5 mg/dL (7.8-10.44); Carbon Dioxide 23 mmol/L (23-31); Chloride 99 mmol/L (98-107); Globulin 1.9 g/dL (2.4-3.5); Glucose 91 mg/dL (83-110); Magnesium 1.5 mg/dL (1.6-2.6); Potassium 4.2 mmol/L (3.5-5.1); Protein, Total 4.9 g/dL (5.8-8.1); Sodium 131 mmol/L (136-145)
[2021-07-20 09:32] LABS: Phosphorus 3.3 mg/dL (2.3-4.7)
[2021-07-20] MEDS: Famotidine/PF 20 mg/2ml Vial SLOW IVP SCH (10:05)
[2021-07-20] MEDS ORDERED: Famotidine 20 MG TAB PER TUBE SCH (10:30)
[2021-07-20] MEDS ORDERED: Magnesium 2 GM/50 ML(in water) 2 GM in Premix Bag 1 BAG IVPB SCH (11:00)
[2021-07-20] MEDS: Montelukast Sodium 10 mg Tablet PO SCH (19:49)
[2021-07-20] MEDS: Famotidine 20 MG TAB PER TUBE SCH (19:50)
[2021-07-21 05:47] LABS: Anion Gap 14 mmol/L (10-20); BUN (Urea Nitrogen) 12 mg/dL (9.8-20.1); Calc. Creatinine Clearance 93 mL/min (70-130); Calcium 8.3 mg/dL (7.8-10.44); Carbon Dioxide 22 mmol/L (23-31); Chloride 100 mmol/L (98-107); Glucose 121 mg/dL (83-110); Magnesium 1.9 mg/dL (1.6-2.6); Phosphorus 3.4 mg/dL (2.3-4.7); Potassium 3.9 mmol/L (3.5-5.1); Sodium 132 mmol/L (136-145)
[2021-07-21 05:54] LABS: #Eosinphils 0.2 10x3/uL (0.0-0.5); #Monocytes 0.6 10x3/uL (0.0-1.1); #Neutrophils 5.3 10x3/uL (1.5-8.4); %Basophils 0.4 % (0.0-2.0); %Eosinophils 2.1 % (0.0-6.0); %Lymphocytes 15.9 % (18.0-47.0); %Monocytes 8.3 % (0.0-10.0); %Neutrophils 72.9 % (40.0-75.0); Hemoglobin 10.7 g/dL (12.0-15.5); Mean Corpuscular HGB CONC 35.5 g/dL (32.0-36.0); Mean Corpuscular Hemoglobin 30.7 pg (27.0-33.0); Mean Corpuscular Volume 86.5 fl (81.6-98.3); Mean Platelet Volume 9.5 fl (7.4-10.4); Platelet Count 165 10x3/uL (150-450); RBC Distribution Width 12.2 % (11.5-14.5); Red Blood Cell (RBC) Count 3.48 10x6/uL (3.90-5.03); White Blood Cell (WBC) Count 7.2 10x3/uL (3.5-10.5)
[2021-07-21] MEDS: Levothyroxine Sodium 25 MCG TAB PO SCH (07:00)
[2021-07-21] MEDS: Amlodipine 5 MG TAB PO SCH (07:47)
[2021-07-21] MEDS: Famotidine 20 MG TAB PER TUBE SCH ×2 (07:47→21:14)
[2021-07-21] MEDS: Enoxaparin Sodium 40 MG/0.4 ML SYRINGE SC SCH (07:48)
[2021-07-21] MEDS: Multivit, Therapeutic 1 TAB PO SCH (07:48)
[2021-07-21] MEDS: Dexmedetomidine In 0.9 % NaCl 400 MCG in Premix Bag 1 BAG IVPB PRN (08:27)
[2021-07-21] MEDS: Ubidecarenone 50 MG CAP PO SCH (08:49)
[2021-07-21] MEDS: Bupropion 150 MG XL TAB PO SCH (09:26)
[2021-07-21] MEDS: Stress 600 With Zinc 1 TAB PO SCH ×2 (09:52→21:14)
[2021-07-21] MEDS ORDERED: Metoprolol Tartrate 25 MG TAB PER TUBE SCH (10:00)
[2021-07-21 10:25] LABS: Actual Bicarbonate (HCO3a) 23.2 mEq/L (22-28); Base Excess (BEa) 0.2 mEq/L (-2.0 to +3.0); CO2 Tension 32.2 mmHg (35.0-45.0); Calcium, Ionized (arterial) 1.17 mmol/L (1.12-1.30); Carboxyhemoglobin (COHb) 0.3 gm% (0.0-3.0); Hemoglobin (Hb) 11.1 g/dL (12.0-16.0); O2 Tension (PaO2), arterial 73.5 mmHg (> 70.0); Potassium - ABG Lab 3.6 mmol/L (3.70-5.30); Puncture Site LRA; pH, Arterial 7.48 (7.35-7.45)
[2021-07-21 18:17] VITALS: TEMP 97.3
[2021-07-21] MEDS: Montelukast Sodium 10 mg Tablet PO SCH (21:14)
[2021-07-21] MEDS: Metoprolol Tartrate 25 MG TAB PER TUBE SCH (22:55)
[2021-07-22 03:40] LABS: Hemoglobin 9.7 g/dL (12.0-15.5); MDiff Complete? YES; Manual Diff?? YES; Mean Corpuscular HGB CONC 36.2 g/dL (32.0-36.0); Mean Corpuscular Hemoglobin 31.2 pg (27.0-33.0); Mean Corpuscular Volume 86.2 fl (81.6-98.3); Mean Platelet Volume 9.6 fl (7.4-10.4); Platelet Count 162 10x3/uL (150-450); RBC Distribution Width 12.4 % (11.5-14.5); Red Blood Cell (RBC) Count 3.11 10x6/uL (3.90-5.03); White Blood Cell (WBC) Count 7.8 10x3/uL (3.5-10.5)
[2021-07-22 04:09] LABS: Anion Gap 12 mmol/L (10-20); BUN (Urea Nitrogen) 16 mg/dL (9.8-20.1); Calc. Creatinine Clearance 88 mL/min (70-130); Calcium 8.3 mg/dL (7.8-10.44); Carbon Dioxide 22 mmol/L (23-31); Chloride 100 mmol/L (98-107); Glucose 127 mg/dL (83-110); Magnesium 1.8 mg/dL (1.6-2.6); Phosphorus 2.7 mg/dL (2.3-4.7); Potassium 3.8 mmol/L (3.5-5.1); Sodium 130 mmol/L (136-145)
[2021-07-22 04:21] LABS: Band 15 % (5-11); Lymphocytes 12 % (21-51); Monocytes 7 % (0-10); Neutrophil 66 % (42-75); Platelet Morphology Comment Appears Adequate
[2021-07-22] MEDS: Levothyroxine Sodium 25 MCG TAB PO SCH (05:10)
[2021-07-22] MEDS: Dexmedetomidine In 0.9 % NaCl 400 MCG in Premix Bag 1 BAG IVPB PRN (05:10)
[2021-07-22 07:43] LABS: Puncture Site Other Site; RapidComm Collect By CSUC.CNC
[2021-07-22] MEDS: Amlodipine 5 MG TAB PO SCH (08:39)
[2021-07-22] MEDS: Enoxaparin Sodium 40 MG/0.4 ML SYRINGE SC SCH (08:43)
[2021-07-22] MEDS: Famotidine 20 MG TAB PER TUBE SCH ×2 (08:43→21:46)
[2021-07-22] MEDS: Multivit, Therapeutic 1 TAB PO SCH (08:43)
[2021-07-22] MEDS: Metoprolol Tartrate 25 MG TAB PER TUBE SCH ×2 (08:43→21:46)
[2021-07-22] MEDS: Bupropion 150 MG XL TAB PO SCH (08:43)
[2021-07-22] MEDS: Stress 600 With Zinc 1 TAB PO SCH ×2 (08:44→21:46)
[2021-07-22] MEDS: Ubidecarenone 50 MG CAP PO SCH (08:44)
[2021-07-22] MEDS ORDERED: Magnesium 2 GM/50 ML(in water) 2 GM in Premix Bag 1 BAG IVPB SCH (09:00)
[2021-07-22] MEDS ORDERED: PHOS-NAK 1 PKT PACK PER TUBE SCH (09:00)
[2021-07-22 14:13] VITALS: BMI 24.8
[2021-07-22] MEDS: Montelukast Sodium 10 mg Tablet PO SCH (21:46)
[2021-07-22] MEDS ORDERED: fentaNYL 50 mcg/hour Patch TD SCH (22:00)
[2021-07-23 02:57] LABS: #Eosinphils 0.1 10x3/uL (0.0-0.5); #Monocytes 0.9 10x3/uL (0.0-1.1); #Neutrophils 8.7 10x3/uL (1.5-8.4); %Basophils 0.4 % (0.0-2.0); %Eosinophils 0.9 % (0.0-6.0); %Lymphocytes 10.4 % (18.0-47.0); %Monocytes 8.1 % (0.0-10.0); %Neutrophils 79.7 % (40.0-75.0); Hemoglobin 10.9 g/dL (12.0-15.5); Mean Corpuscular HGB CONC 35.3 g/dL (32.0-36.0); Mean Corpuscular Hemoglobin 30.7 pg (27.0-33.0); Mean Platelet Volume 9.4 fl (7.4-10.4); Platelet Count 224 10x3/uL (150-450); RBC Distribution Width 12.5 % (11.5-14.5); Red Blood Cell (RBC) Count 3.55 10x6/uL (3.90-5.03); White Blood Cell (WBC) Count 10.9 10x3/uL (3.5-10.5)
[2021-07-23 03:19] LABS: Anion Gap 15 mmol/L (10-20); BUN (Urea Nitrogen) 12 mg/dL (9.8-20.1); Calc. Creatinine Clearance 93 mL/min (70-130); Calcium 8.6 mg/dL (7.8-10.44); Carbon Dioxide 22 mmol/L (23-31); Chloride 100 mmol/L (98-107); Glucose 108 mg/dL (83-110); Potassium 3.9 mmol/L (3.5-5.1); Sodium 133 mmol/L (136-145)
[2021-07-23] MEDS: Levothyroxine Sodium 25 MCG TAB PO SCH (05:27)
[2021-07-23] MEDS: Amlodipine 5 MG TAB PO SCH (08:19)
[2021-07-23] MEDS: Enoxaparin Sodium 40 MG/0.4 ML SYRINGE SC SCH (08:20)
[2021-07-23] MEDS: Famotidine 20 MG TAB PER TUBE SCH (08:20)
[2021-07-23] MEDS: Multivit, Therapeutic 1 TAB PO SCH (08:20)
[2021-07-23] MEDS: Metoprolol Tartrate 25 MG TAB PER TUBE SCH (08:20)
[2021-07-23] MEDS: Ubidecarenone 50 MG CAP PO SCH (08:20)
[2021-07-23] MEDS: Stress 600 With Zinc 1 TAB PO SCH (08:21)
[2021-07-23 10:03] VITALS: BP 151/82
== END 2021-07-23 11:15 | DRG 4 ==
LOC: CSHERS 23:41 → CSHICU 07-13 04:08
PROVIDERS: ADMIT Student in an Organized Health Care Education/Training Program; ATTEND Hospitalist
PROC: 5A09557 Assistance with Respiratory Ventilation, Greater than 96 Consecutive Hours, Continuous Positive Airway Pressure (ICD-10-PCS; 2021-07-13)
PROC: 5A0935A Assistance with Respiratory Ventilation, Less than 24 Consecutive Hours, High Flow/Velocity Cannula (ICD-10-PCS; 2021-07-13)
PROC: 0B113F4 Bypass Trachea to Cutaneous with Tracheostomy Device, Percutaneous Approach (ICD-10-PCS; principal; 2021-07-19)
PROC: 0DH63UZ Insertion of Feeding Device into Stomach, Percutaneous Approach (ICD-10-PCS; 2021-07-19)
PROC: 3E0G76Z Introduction of Nutritional Substance into Upper GI, Via Natural or Artificial Opening (ICD-10-PCS; 2021-07-19)
PROC: 5A1945Z Respiratory Ventilation, 24-96 Consecutive Hours (ICD-10-PCS; 2021-07-19)
PROC: 0BH17EZ Insertion of Endotracheal Airway into Trachea, Via Natural or Artificial Opening (ICD-10-PCS; 2021-07-19)
DX: J96.21 Acute and chronic respiratory failure with hypoxia (principal); E43 Unspecified severe protein-calorie malnutrition; G93.41 Metabolic encephalopathy; N39.0 Urinary tract infection, site not specified; E87.1 Hypo-osmolality and hyponatremia; J98.11 Atelectasis; J90 Pleural effusion, not elsewhere classified; G95.89 Other specified diseases of spinal cord; R64 Cachexia; F05 Delirium due to known physiological condition; J96.22 Acute and chronic respiratory failure with hypercapnia; I10 Essential (primary) hypertension; R40.0 Somnolence; J45.909 Unspecified asthma, uncomplicated; R29.6 Repeated falls; R62.7 Adult failure to thrive; G31.9 Degenerative disease of nervous system, unspecified; F32.A Depression, unspecified; E03.9 Hypothyroidism, unspecified; F03.90 Unspecified dementia, unspecified severity, without behavioral disturbance, psychotic disturbance, mood disturbance, and anxiety; E78.5 Hyperlipidemia, unspecified; R43.0 Anosmia; R53.81 Other malaise; Z20.822 Contact with and (suspected) exposure to COVID-19; Z68.23 Body mass index [BMI] 23.0-23.9, adult; Z98.890 Other specified postprocedural states; Z90.710 Acquired absence of both cervix and uterus; Z79.899 Other long term (current) drug therapy; Z79.890 Hormone replacement therapy; Z88.1 Allergy status to other antibiotic agents; Z88.5 Allergy status to narcotic agent; Z88.0 Allergy status to penicillin; Z88.2 Allergy status to sulfonamides; Z88.8 Allergy status to other drugs, medicaments and biological substances; Z91.018 Allergy to other foods
CPT/HCPCS: 36415; 36416; 36600; 51702; 70450; 70551; 71045; 80048; 80053; 80306; 80307; 81001; 81003; 81015; 82085; 82140; 82550; 82805; 83605; 83690; 83735; 83880; 83930; 83935; 84100; 84133; 84134; 84145; 84300; 84443; 84484; 85025; 86038; 86225; 87040; 87086; 87449; 87899; 93005; 94002; 94003; 94660; 94760; 95816; 95819; 95957; 96361; 96365; A7521; J0696; J1650; J1956; J2405; J2704; J3010; J3475; J7050; S0028; U0002; U0003; U0005

== ENCOUNTER 2021-09-13 13:28 | Inpatient (IN) | payer MEDICARE, BC ==
[2021-09-13] MEDS ORDERED: Vecuronium 10 MG VIAL ONE (13:57)
[2021-09-13] MEDS ORDERED: Sterile Water 10 ML ONE (13:58)
[2021-09-13 15:02] LABS: #Basophils 0.1 10x3/uL (0.0-0.2); #Monocytes 0.7 10x3/uL (0.0-1.1); #Neutrophils 7.7 10x3/uL (1.5-8.4); %Basophils 0.5 % (0.0-2.0); %Eosinophils 0.4 % (0.0-6.0); %Lymphocytes 6.9 % (18.0-47.0); %Monocytes 7.3 % (0.0-10.0); %Neutrophils 83.8 % (40.0-75.0); Hemoglobin 11.2 g/dL (12.0-15.5); Mean Corpuscular HGB CONC 34.1 g/dL (32.0-36.0); Mean Corpuscular Hemoglobin 30.7 pg (27.0-33.0); Mean Corpuscular Volume 89.9 fl (81.6-98.3); Mean Platelet Volume 9.6 fl (7.4-10.4); Platelet Count 211 10x3/uL (150-450); RBC Distribution Width 13.8 % (11.5-14.5); Red Blood Cell (RBC) Count 3.65 10x6/uL (3.90-5.03); White Blood Cell (WBC) Count 9.2 10x3/uL (3.5-10.5)
[2021-09-13] MEDS ORDERED: Aztreonam 2 GM in Sodium Chloride 0.9% 100 ML IVPB SCH (15:30)
[2021-09-13 15:37] LABS: ALT (SGPT) 39 U/L (8-55); AST (SGOT) 44 U/L (5-34); Albumin 3.3 g/dL (3.4-4.8); Alkaline Phosphatase 114 U/L (40-110); Anion Gap 14 mmol/L (10-20); BUN (Urea Nitrogen) 13 mg/dL (9.8-20.1); Bilirubin, Total 0.3 mg/dL (0.2-1.2); Calc. Creatinine Clearance 0 mL/min (70-130); Carbon Dioxide 34 mmol/L (23-31); Chloride 84 mmol/L (98-107); Estimated GFR 96; Globulin 2.4 g/dL (2.4-3.5); Glucose 110 mg/dL (83-110); Lipase 33 U/L (8-78); Potassium 4.4 mmol/L (3.5-5.1); Protein, Total 5.7 g/dL (5.8-8.1); Sodium 128 mmol/L (136-145)
[2021-09-13] MEDS ORDERED: NOREPINEPHRINE 8 MG/250 ML-D5W 250 ML ONE (16:15)
[2021-09-13 16:42] LABS: Bilirubin Neg (Negative); Blood, Urine Negative (Negative); Clarity Slightly Cloudy (Clear); Glucose, Urine (Dipstick) Normal (Negative); Ketone, Urine 5 mg/dL (Negative); Leukocyte Negative (Negative); Nitrite Negative (Negative); Protein, Urine (Dipstick) 15 mg/dl (Neg-Trace); Urobilinogen Normal mg/dL (Less than 2)
[2021-09-13 17:01] LABS: Actual Bicarbonate (HCO3a) 31.4 mEq/L (22-28); Base Excess (BEa) 7.7 mEq/L (-2.0 to +3.0); CO2 Tension 40.2 mmHg (35.0-45.0); Calcium, Ionized (arterial) 1.08 mmol/L (1.12-1.30); Carboxyhemoglobin (COHb) 0.4 gm% (0.0-3.0); Puncture Site LRA; pH, Arterial 7.51 (7.35-7.45)
[2021-09-13 17:16] LABS: SARS-CoV-2 NAA Rapid Test Not Detected (NotDetected)
[2021-09-13 17:45] LABS: Troponin I 0.026 ng/mL (< 0.028)
[2021-09-13] MEDS ORDERED: Acetaminophen 650 MG Suppository PR PRN (18:06)
[2021-09-13] MEDS ORDERED: NOREPINEPHRINE 8 MG/250 ML-D5W 250 ML IVPB PRN (18:06)
[2021-09-13] MEDS ORDERED: Ventilator Sedation Protocol 1 EACH FS SCH (18:06)
[2021-09-13] MEDS ORDERED: Bisacodyl 5 MG TAB PO PRN (18:06)
[2021-09-13] MEDS ORDERED: Electrolyte Replacement Protocol 1 EACH IVPB PRN (18:06)
[2021-09-13] MEDS ORDERED: Acetaminophen 325 MG TAB PER TUBE PRN (18:06)
[2021-09-13] MEDS ORDERED: Ondansetron PF 4 MG/2 ML Vial IVP PRN (18:06)
[2021-09-13] MEDS ORDERED: Lorazepam 2 MG/ML VIAL SLOW IVP PRN (18:30)
[2021-09-13] MEDS ORDERED: Morphine 2 MG/ML VIAL SLOW IVP PRN (18:30)
[2021-09-13] MEDS ORDERED: Propofol BOLUS 1,000 MG/100 ML VIAL IV PRN (18:30)
[2021-09-13] MEDS ORDERED: Fentanyl BOLUS 250 ML IVPB PRN (18:30)
[2021-09-13] MEDS: Propofol 1,000 MG/100 ML VIAL IV PRN ×2 (19:49→19:50)
[2021-09-13 20:18] LABS: Troponin I 0.031 ng/mL (< 0.028)
[2021-09-13 20:32] LABS: Actual Bicarbonate (HCO3a) 34.2 mEq/L (22-28); Base Excess (BEa) 9.1 mEq/L (-2.0 to +3.0); CO2 Tension 49.4 mmHg (35.0-45.0); Calcium, Ionized (arterial) 1.09 mmol/L (1.12-1.30); Carboxyhemoglobin (COHb) 0.6 gm% (0.0-3.0); Hemoglobin (Hb) 11.3 g/dL (12.0-16.0); O2 Tension (PaO2), arterial 134.8 mmHg (> 70.0); Potassium - ABG Lab 3.7 mmol/L (3.70-5.30); Puncture Site RRA; pH, Arterial 7.46 (7.35-7.45)
[2021-09-13] MEDS: Aztreonam 2 GM in Sodium Chloride 0.9% 100 ML IVPB SCH (21:35)
[2021-09-13] MEDS: metroNIDAZOLE 500 MG in Premix Bag 1 BAG IVPB SCH (22:56)
[2021-09-13 23:19] LABS: Anion Gap 11 mmol/L (10-20); BUN (Urea Nitrogen) 14 mg/dL (9.8-20.1); Calc. Creatinine Clearance 81 mL/min (70-130); Calcium 8.8 mg/dL (7.8-10.44); Carbon Dioxide 34 mmol/L (23-31); Chloride 87 mmol/L (98-107); Estimated GFR 97; Glucose 144 mg/dL (83-110); Magnesium 1.5 mg/dL (1.6-2.6); Potassium 4.2 mmol/L (3.5-5.1); Sodium 128 mmol/L (136-145)
[2021-09-14] MEDS ORDERED: Lorazepam 2 MG/ML VIAL SLOW IVP PRN (00:03)
[2021-09-14] MEDS ORDERED: Magnesium 2 GM/50 ML(in water) 2 GM in Premix Bag 1 BAG IVPB SCH (03:00)
[2021-09-14 03:22] LABS: #Basophils 0.1 10x3/uL (0.0-0.2); #Eosinphils 0.1 10x3/uL (0.0-0.5); #Monocytes 0.8 10x3/uL (0.0-1.1); #Neutrophils 8.9 10x3/uL (1.5-8.4); %Basophils 0.6 % (0.0-2.0); %Eosinophils 1.2 % (0.0-6.0); %Monocytes 7.2 % (0.0-10.0); %Neutrophils 82.5 % (40.0-75.0); Hemoglobin 10.1 g/dL (12.0-15.5); Mean Corpuscular HGB CONC 35.3 g/dL (32.0-36.0); Mean Corpuscular Hemoglobin 31.2 pg (27.0-33.0); Mean Corpuscular Volume 88.3 fl (81.6-98.3); Mean Platelet Volume 9.3 fl (7.4-10.4); Platelet Count 188 10x3/uL (150-450); Red Blood Cell (RBC) Count 3.24 10x6/uL (3.90-5.03); White Blood Cell (WBC) Count 10.8 10x3/uL (3.5-10.5)
[2021-09-14 03:42] LABS: Anion Gap 12 mmol/L (10-20); BUN (Urea Nitrogen) 13 mg/dL (9.8-20.1); Calc. Creatinine Clearance 79 mL/min (70-130); Calcium 8.6 mg/dL (7.8-10.44); Carbon Dioxide 33 mmol/L (23-31); Chloride 87 mmol/L (98-107); Estimated GFR 97; Glucose 150 mg/dL (83-110); Phosphorus 2.4 mg/dL (2.3-4.7); Sodium 128 mmol/L (136-145)
[2021-09-14] MEDS: fentaNYL Citrate-0.9 % NaCl/PF 100 ML IVPB SCH (04:42)
[2021-09-14] MEDS: Levothyroxine Sodium 25 MCG TAB PER TUBE SCH (05:14)
[2021-09-14] MEDS: Vancomycin HCl 750 MG in Sodium Chloride 0.9% 250 ML 250 ML IVPB SCH ×2 (05:15→16:25)
[2021-09-14] MEDS: metroNIDAZOLE 500 MG in Premix Bag 1 BAG IVPB SCH ×3 (07:31→23:00)
[2021-09-14] MEDS: Famotidine/PF 20 mg/2ml Vial SLOW IVP SCH (07:55)
[2021-09-14] MEDS: Enoxaparin Sodium 40 MG/0.4 ML SYRINGE SC SCH (07:55)
[2021-09-14] MEDS: Aztreonam 2 GM in Sodium Chloride 0.9% 100 ML IVPB SCH ×2 (07:55→21:18)
[2021-09-14] MEDS: Propofol 1,000 MG/100 ML VIAL IV PRN (07:56)
[2021-09-14] MEDS ORDERED: Senokot S 8.6-50 MG TAB PER TUBE SCH (12:00)
[2021-09-14] MEDS ORDERED: Polyethylene Glycol 3350 17 GM Packet PER TUBE SCH (12:00)
[2021-09-14] MEDS: Furosemide 20 MG/2 ML VIAL SLOW IVP SCH (13:34)
[2021-09-14] MEDS ORDERED: Furosemide 100 MG/10 ML VIAL SLOW IVP SCH (21:00)
[2021-09-14] MEDS: Senokot S 8.6-50 MG TAB PER TUBE SCH (21:18)
[2021-09-14] MEDS: Polyethylene Glycol 3350 17 GM Packet PER TUBE SCH (21:18)
[2021-09-15 03:29] LABS: #Eosinphils 0.2 10x3/uL (0.0-0.5); #Monocytes 0.7 10x3/uL (0.0-1.1); #Neutrophils 5.6 10x3/uL (1.5-8.4); %Basophils 0.4 % (0.0-2.0); %Eosinophils 2.3 % (0.0-6.0); %Lymphocytes 10.4 % (18.0-47.0); %Neutrophils 77.5 % (40.0-75.0); Hemoglobin 9.2 g/dL (12.0-15.5); Mean Corpuscular HGB CONC 34.8 g/dL (32.0-36.0); Mean Corpuscular Hemoglobin 31.2 pg (27.0-33.0); Mean Corpuscular Volume 89.5 fl (81.6-98.3); Mean Platelet Volume 9.4 fl (7.4-10.4); Platelet Count 140 10x3/uL (150-450); RBC Distribution Width 14.1 % (11.5-14.5); Red Blood Cell (RBC) Count 2.95 10x6/uL (3.90-5.03); White Blood Cell (WBC) Count 7.2 10x3/uL (3.5-10.5)
[2021-09-15 03:40] LABS: Vancomycin, Trough 14.4 ug/mL
[2021-09-15 03:48] LABS: ALT (SGPT) 22 U/L (8-55); AST (SGOT) 17 U/L (5-34); Albumin 2.7 g/dL (3.4-4.8); Alkaline Phosphatase 94 U/L (40-110); Anion Gap 12 mmol/L (10-20); BUN (Urea Nitrogen) 12 mg/dL (9.8-20.1); Bilirubin, Direct 0.2 mg/dL (0.1-0.3); Bilirubin, Total 0.3 mg/dL (0.2-1.2); Calc. Creatinine Clearance 77 mL/min (70-130); Calcium 8.3 mg/dL (7.8-10.44); Carbon Dioxide 35 mmol/L (23-31); Chloride 88 mmol/L (98-107); Estimated GFR 95; Glucose 110 mg/dL (83-110); Magnesium 1.6 mg/dL (1.6-2.6); Potassium 3.1 mmol/L (3.5-5.1); Protein, Total 4.5 g/dL (5.8-8.1); Sodium 132 mmol/L (136-145)
[2021-09-15] MEDS: Vancomycin HCl 750 MG in Sodium Chloride 0.9% 250 ML 250 ML IVPB SCH ×2 (04:15→16:03)
[2021-09-15] MEDS: Propofol 1,000 MG/100 ML VIAL IV PRN ×2 (04:49→15:20)
[2021-09-15] MEDS ORDERED: Magnesium 2 GM/50 ML(in water) 2 GM in Premix Bag 1 BAG IVPB SCH ×2 (05:00→22:00)
[2021-09-15] MEDS: Furosemide 20 MG/2 ML VIAL SLOW IVP SCH (05:06)
[2021-09-15] MEDS: Levothyroxine Sodium 25 MCG TAB PER TUBE SCH (05:06)
[2021-09-15] MEDS: metroNIDAZOLE 500 MG in Premix Bag 1 BAG IVPB SCH ×3 (05:22→21:59)
[2021-09-15] MEDS: Potassium Chloride 20 MEQ in Premix Bag 1 BAG IVPB SCH ×4 (05:22→16:33)
[2021-09-15] MEDS: Aztreonam 2 GM in Sodium Chloride 0.9% 100 ML IVPB SCH ×2 (07:48→20:33)
[2021-09-15] MEDS: Polyethylene Glycol 3350 17 GM Packet PER TUBE SCH ×2 (07:48→20:33)
[2021-09-15] MEDS: Famotidine/PF 20 mg/2ml Vial SLOW IVP SCH (07:48)
[2021-09-15] MEDS: Senokot S 8.6-50 MG TAB PER TUBE SCH ×2 (07:48→20:33)
[2021-09-15] MEDS: Enoxaparin Sodium 40 MG/0.4 ML SYRINGE SC SCH (10:30)
[2021-09-15] MEDS: fentaNYL Citrate-0.9 % NaCl/PF 100 ML IVPB SCH (10:57)
[2021-09-15] MEDS ORDERED: Furosemide 20 MG/2 ML VIAL SLOW IVP SCH (12:00)
[2021-09-15 14:45] LABS: Potassium 3.1 mmol/L (3.5-5.1)
[2021-09-15 20:13] LABS: Anion Gap 11 mmol/L (10-20); BUN (Urea Nitrogen) 13 mg/dL (9.8-20.1); Calc. Creatinine Clearance 87 mL/min (70-130); Calcium 8.5 mg/dL (7.8-10.44); Carbon Dioxide 36 mmol/L (23-31); Chloride 90 mmol/L (98-107); Estimated GFR 98; Glucose 102 mg/dL (83-110); Magnesium 1.7 mg/dL (1.6-2.6); Sodium 133 mmol/L (136-145)
[2021-09-15] MEDS ORDERED: Furosemide 40 MG/4 ML VIAL ONE (20:34)
[2021-09-15] MEDS ORDERED: Furosemide 40 MG/4 ML VIAL SLOW IVP SCH (21:00)
[2021-09-16] MEDS: Vancomycin HCl 750 MG in Sodium Chloride 0.9% 250 ML 250 ML IVPB SCH ×2 (03:03→16:18)
[2021-09-16 04:00] LABS: #Eosinphils 0.1 10x3/uL (0.0-0.5); #Monocytes 0.6 10x3/uL (0.0-1.1); #Neutrophils 4.5 10x3/uL (1.5-8.4); %Basophils 0.5 % (0.0-2.0); %Eosinophils 2.3 % (0.0-6.0); %Lymphocytes 12.7 % (18.0-47.0); %Monocytes 9.8 % (0.0-10.0); %Neutrophils 74.4 % (40.0-75.0); Hemoglobin 9.7 g/dL (12.0-15.5); Mean Corpuscular HGB CONC 33.8 g/dL (32.0-36.0); Mean Corpuscular Hemoglobin 30.9 pg (27.0-33.0); Mean Corpuscular Volume 91.4 fl (81.6-98.3); Mean Platelet Volume 9.5 fl (7.4-10.4); Platelet Count 146 10x3/uL (150-450); RBC Distribution Width 14.3 % (11.5-14.5); Red Blood Cell (RBC) Count 3.14 10x6/uL (3.90-5.03)
[2021-09-16 04:24] LABS: BUN (Urea Nitrogen) 15 mg/dL (9.8-20.1); Calc. Creatinine Clearance 85 mL/min (70-130); Calcium 8.5 mg/dL (7.8-10.44); Estimated GFR 98; Glucose 119 mg/dL (83-110); Magnesium 2.1 mg/dL (1.6-2.6)
[2021-09-16 04:31] LABS: Anion Gap 15 mmol/L (10-20); Carbon Dioxide 37 mmol/L (23-31); Chloride 89 mmol/L (98-107); Potassium 3.2 mmol/L (3.5-5.1); Sodium 138 mmol/L (136-145)
[2021-09-16] MEDS ORDERED: Potassium Bicarbonate/Cit Ac 20 MEQ TAB PER TUBE SCH (05:15)
[2021-09-16] MEDS: Levothyroxine Sodium 50 MCG TAB PER TUBE SCH (05:33)
[2021-09-16] MEDS: metroNIDAZOLE 500 MG in Premix Bag 1 BAG IVPB SCH ×3 (05:34→20:42)
[2021-09-16] MEDS: Aztreonam 2 GM in Sodium Chloride 0.9% 100 ML IVPB SCH ×2 (09:10→20:41)
[2021-09-16] MEDS: Enoxaparin Sodium 40 MG/0.4 ML SYRINGE SC SCH (09:11)
[2021-09-16] MEDS: Famotidine/PF 20 mg/2ml Vial SLOW IVP SCH ×2 (09:12→20:41)
[2021-09-16] MEDS: Senokot S 8.6-50 MG TAB PER TUBE SCH ×3 (09:16→20:39)
[2021-09-16] MEDS: Polyethylene Glycol 3350 17 GM Packet PER TUBE SCH ×3 (09:16→20:38)
[2021-09-16 10:00] LABS: Potassium 3.7 mmol/L (3.5-5.1)
[2021-09-16 15:55] LABS: Vancomycin, Trough 14.8 ug/mL
[2021-09-17] MEDS: Propofol 1,000 MG/100 ML VIAL IV PRN ×2 (01:10→18:38)
[2021-09-17 04:12] LABS: #Eosinphils 0.2 10x3/uL (0.0-0.5); #Monocytes 0.5 10x3/uL (0.0-1.1); %Basophils 0.4 % (0.0-2.0); %Lymphocytes 12.9 % (18.0-47.0); %Monocytes 9.4 % (0.0-10.0); %Neutrophils 73.9 % (40.0-75.0); Hemoglobin 8.8 g/dL (12.0-15.5); Mean Corpuscular HGB CONC 33.1 g/dL (32.0-36.0); Mean Corpuscular Volume 93.7 fl (81.6-98.3); Mean Platelet Volume 9.1 fl (7.4-10.4); Platelet Count 115 10x3/uL (150-450); RBC Distribution Width 14.2 % (11.5-14.5); Red Blood Cell (RBC) Count 2.84 10x6/uL (3.90-5.03); White Blood Cell (WBC) Count 5.3 10x3/uL (3.5-10.5)
[2021-09-17 04:44] LABS: BUN (Urea Nitrogen) 13 mg/dL (9.8-20.1); Calc. Creatinine Clearance 93 mL/min (70-130); Calcium 8.6 mg/dL (7.8-10.44); Estimated GFR 100; Glucose 115 mg/dL (83-110); Magnesium 1.8 mg/dL (1.6-2.6)
[2021-09-17 04:57] LABS: ALV-art Gradient 112.675 mmHg (0-20); Actual Bicarbonate (HCO3a) 43.1 mEq/L (22-28); Base Excess (BEa) 16.6 mEq/L (-2.0 to +3.0); CO2 Tension 64.1 mmHg (35.0-45.0); Calcium, Ionized (arterial) 1.15 mmol/L (1.12-1.30); Carboxyhemoglobin (COHb) 0.4 gm% (0.0-3.0); Hemoglobin (Hb) 9.9 g/dL (12.0-16.0); O2 Tension (PaO2), arterial 92.4 mmHg (> 70.0); Potassium - ABG Lab 3.8 mmol/L (3.70-5.30); Puncture Site RRA; pH, Arterial 7.45 (7.35-7.45)
[2021-09-17 05:03] LABS: Anion Gap 12 mmol/L (10-20); Carbon Dioxide 38 mmol/L (23-31); Chloride 92 mmol/L (98-107); Potassium 3.8 mmol/L (3.5-5.1); Sodium 138 mmol/L (136-145)
[2021-09-17] MEDS: Vancomycin HCl 750 MG in Sodium Chloride 0.9% 250 ML 250 ML IVPB SCH ×2 (05:24→15:37)
[2021-09-17] MEDS: metroNIDAZOLE 500 MG in Premix Bag 1 BAG IVPB SCH ×3 (05:25→22:19)
[2021-09-17] MEDS: Levothyroxine Sodium 50 MCG TAB PER TUBE SCH (05:25)
[2021-09-17] MEDS ORDERED: Magnesium 2 GM/50 ML(in water) 2 GM in Premix Bag 1 BAG IVPB SCH (06:00)
[2021-09-17] MEDS: Famotidine/PF 20 mg/2ml Vial SLOW IVP SCH ×2 (08:39→20:28)
[2021-09-17] MEDS: Aztreonam 2 GM in Sodium Chloride 0.9% 100 ML IVPB SCH ×2 (08:39→16:54)
[2021-09-17] MEDS: Senokot S 8.6-50 MG TAB PER TUBE SCH ×2 (08:39→20:49)
[2021-09-17] MEDS: Enoxaparin Sodium 40 MG/0.4 ML SYRINGE SC SCH (08:40)
[2021-09-17] MEDS: Polyethylene Glycol 3350 17 GM Packet PER TUBE SCH ×2 (08:40→20:48)
[2021-09-18] MEDS: Aztreonam 2 GM in Sodium Chloride 0.9% 100 ML IVPB SCH ×3 (00:32→17:29)
[2021-09-18 05:44] LABS: Vancomycin, Trough 16.5 ug/mL
[2021-09-18 05:45] LABS: ALT (SGPT) 14 U/L (8-55); AST (SGOT) 15 U/L (5-34); Albumin 2.7 g/dL (3.4-4.8); Alkaline Phosphatase 79 U/L (40-110); Bilirubin, Direct 0.2 mg/dL (0.1-0.3); Bilirubin, Total 0.4 mg/dL (0.2-1.2); Protein, Total 4.5 g/dL (5.8-8.1)
[2021-09-18 07:18] LABS: Puncture Site RRA
[2021-09-18 07:20] LABS: ALV-art Gradient 157.075 mmHg (0-20); Actual Bicarbonate (HCO3a) 26.3 mEq/L (22-28); Base Excess (BEa) 4.9 mEq/L (-2.0 to +3.0); CO2 Tension 27.7 mmHg (35.0-45.0); Hemoglobin (Hb) 8.9 g/dL (12.0-16.0); O2 Tension (PaO2), arterial 93.5 mmHg (> 70.0); Potassium - ABG Lab 3.8 mmol/L (3.70-5.30)
[2021-09-18] MEDS: Levothyroxine Sodium 50 MCG TAB PER TUBE SCH (07:27)
[2021-09-18] MEDS: Vancomycin HCl 750 MG in Sodium Chloride 0.9% 250 ML 250 ML IVPB SCH ×2 (07:27→16:11)
[2021-09-18] MEDS: metroNIDAZOLE 500 MG in Premix Bag 1 BAG IVPB SCH ×3 (07:27→23:31)
[2021-09-18 07:32] LABS: Triglycerides 40 mg/dL (Less than 150)
[2021-09-18 08:16] LABS: Anion Gap 11 mmol/L (10-20); BUN (Urea Nitrogen) 16 mg/dL (9.8-20.1); Calc. Creatinine Clearance 91 mL/min (70-130); Calcium 8.4 mg/dL (7.8-10.44); Carbon Dioxide 32 mmol/L (23-31); Chloride 97 mmol/L (98-107); Estimated GFR 99; Glucose 102 mg/dL (83-110); Magnesium 1.9 mg/dL (1.6-2.6); Potassium 3.1 mmol/L (3.5-5.1); Sodium 137 mmol/L (136-145)
[2021-09-18] MEDS: Propofol 1,000 MG/100 ML VIAL IV PRN ×2 (08:32→14:07)
[2021-09-18] MEDS: Famotidine/PF 20 mg/2ml Vial SLOW IVP SCH ×2 (08:33→21:02)
[2021-09-18] MEDS: Enoxaparin Sodium 40 MG/0.4 ML SYRINGE SC SCH (08:33)
[2021-09-18] MEDS ORDERED: acetaZOLAMIDE Sodium 500 mg Vial IVP SCH (09:00)
[2021-09-18] MEDS ORDERED: Potassium Bicarbonate/Cit Ac 20 MEQ TAB PER TUBE SCH ×2 (09:00→20:00)
[2021-09-18] MEDS ORDERED: Magnesium 2 GM/50 ML(in water) 2 GM in Premix Bag 1 BAG IVPB SCH (09:00)
[2021-09-18] MEDS: Senokot S 8.6-50 MG TAB PER TUBE SCH ×2 (09:28→21:02)
[2021-09-18] MEDS: Polyethylene Glycol 3350 17 GM Packet PER TUBE SCH ×2 (09:28→21:02)
[2021-09-18 10:21] LABS: #Eosinphils 0.2 10x3/uL (0.0-0.5); #Monocytes 0.5 10x3/uL (0.0-1.1); #Neutrophils 3.5 10x3/uL (1.5-8.4); %Basophils 0.6 % (0.0-2.0); %Eosinophils 3.7 % (0.0-6.0); %Lymphocytes 22.7 % (18.0-47.0); %Monocytes 8.9 % (0.0-10.0); %Neutrophils 63.9 % (40.0-75.0); Hemoglobin 9.2 g/dL (12.0-15.5); Mean Corpuscular HGB CONC 34.3 g/dL (32.0-36.0); Mean Corpuscular Hemoglobin 30.8 pg (27.0-33.0); Mean Corpuscular Volume 89.6 fl (81.6-98.3); Mean Platelet Volume 9.5 fl (7.4-10.4); Platelet Count 144 10x3/uL (150-450); RBC Distribution Width 14.4 % (11.5-14.5); Red Blood Cell (RBC) Count 2.99 10x6/uL (3.90-5.03); White Blood Cell (WBC) Count 5.4 10x3/uL (3.5-10.5)
[2021-09-18] MEDS: fentaNYL Citrate-0.9 % NaCl/PF 100 ML IVPB SCH (11:00)
[2021-09-18 18:21] LABS: Potassium 3.2 mmol/L (3.5-5.1)
[2021-09-19] MEDS: Aztreonam 2 GM in Sodium Chloride 0.9% 100 ML IVPB SCH ×3 (02:23→16:56)
[2021-09-19 03:30] LABS: #Eosinphils 0.2 10x3/uL (0.0-0.5); #Monocytes 0.6 10x3/uL (0.0-1.1); %Basophils 0.6 % (0.0-2.0); %Lymphocytes 20.3 % (18.0-47.0); %Neutrophils 62.7 % (40.0-75.0); Hemoglobin 8.5 g/dL (12.0-15.5); Mean Corpuscular HGB CONC 32.4 g/dL (32.0-36.0); Mean Corpuscular Hemoglobin 29.7 pg (27.0-33.0); Mean Corpuscular Volume 91.6 fl (81.6-98.3); Mean Platelet Volume 9.5 fl (7.4-10.4); Platelet Count 117 10x3/uL (150-450); RBC Distribution Width 14.3 % (11.5-14.5); Red Blood Cell (RBC) Count 2.86 10x6/uL (3.90-5.03); White Blood Cell (WBC) Count 4.7 10x3/uL (3.5-10.5)
[2021-09-19 03:47] LABS: Anion Gap 7 mmol/L (10-20); BUN (Urea Nitrogen) 14 mg/dL (9.8-20.1); Calc. Creatinine Clearance 97 mL/min (70-130); Calcium 8.3 mg/dL (7.8-10.44); Carbon Dioxide 31 mmol/L (23-31); Chloride 102 mmol/L (98-107); Estimated GFR 101; Glucose 98 mg/dL (83-110); Magnesium 2.1 mg/dL (1.6-2.6); Potassium 3.7 mmol/L (3.5-5.1); Sodium 136 mmol/L (136-145)
[2021-09-19] MEDS: Vancomycin HCl 750 MG in Sodium Chloride 0.9% 250 ML 250 ML IVPB SCH ×2 (04:28→15:52)
[2021-09-19 04:46] LABS: ALV-art Gradient 88.225 mmHg (0-20); Actual Bicarbonate (HCO3a) 27.1 mEq/L (22-28); Base Excess (BEa) 2.6 mEq/L (-2.0 to +3.0); CO2 Tension 41.9 mmHg (35.0-45.0); Calcium, Ionized (arterial) 1.17 mmol/L (1.12-1.30); Carboxyhemoglobin (COHb) 0.3 gm% (0.0-3.0); Critical Notified By: CP.JL; Hemoglobin (Hb) 9.3 g/dL (12.0-16.0); O2 Tension (PaO2), arterial 144.6 mmHg (> 70.0); Potassium - ABG Lab 3.7 mmol/L (3.70-5.30); Puncture Site RRA; RapidComm Collect By CP.JL; pH, Arterial 7.43 (7.35-7.45)
[2021-09-19] MEDS: Levothyroxine Sodium 50 MCG TAB PER TUBE SCH (06:18)
[2021-09-19] MEDS: metroNIDAZOLE 500 MG in Premix Bag 1 BAG IVPB SCH (06:18)
[2021-09-19] MEDS: Enoxaparin Sodium 40 MG/0.4 ML SYRINGE SC SCH (08:08)
[2021-09-19] MEDS: Polyethylene Glycol 3350 17 GM Packet PER TUBE SCH ×2 (08:08→20:29)
[2021-09-19] MEDS: Famotidine/PF 20 mg/2ml Vial SLOW IVP SCH ×2 (08:09→20:28)
[2021-09-19] MEDS: Senokot S 8.6-50 MG TAB PER TUBE SCH ×2 (08:09→20:28)
[2021-09-19] MEDS: Propofol 1,000 MG/100 ML VIAL IV PRN (12:08)
[2021-09-20] MEDS: Aztreonam 2 GM in Sodium Chloride 0.9% 100 ML IVPB SCH ×3 (00:42→17:34)
[2021-09-20] MEDS: Vancomycin HCl 750 MG in Sodium Chloride 0.9% 250 ML 250 ML IVPB SCH ×2 (03:51→16:38)
[2021-09-20 04:08] LABS: Anion Gap 10 mmol/L (10-20); BUN (Urea Nitrogen) 13 mg/dL (9.8-20.1); Calc. Creatinine Clearance 0 mL/min (70-130); Calcium 8.3 mg/dL (7.8-10.44); Carbon Dioxide 28 mmol/L (23-31); Chloride 103 mmol/L (98-107); Estimated GFR 102; Glucose 113 mg/dL (83-110); Magnesium 1.8 mg/dL (1.6-2.6); Potassium 3.7 mmol/L (3.5-5.1); Sodium 137 mmol/L (136-145)
[2021-09-20] MEDS ORDERED: Magnesium 2 GM/50 ML(in water) 2 GM in Premix Bag 1 BAG IVPB SCH (04:15)
[2021-09-20 04:16] LABS: #Eosinphils 0.2 10x3/uL (0.0-0.5); #Monocytes 0.5 10x3/uL (0.0-1.1); #Neutrophils 3.2 10x3/uL (1.5-8.4); %Basophils 0.4 % (0.0-2.0); %Eosinophils 3.8 % (0.0-6.0); %Monocytes 10.7 % (0.0-10.0); %Neutrophils 64.7 % (40.0-75.0); Hemoglobin 9.3 g/dL (12.0-15.5); Mean Corpuscular HGB CONC 34.2 g/dL (32.0-36.0); Mean Corpuscular Hemoglobin 30.9 pg (27.0-33.0); Mean Corpuscular Volume 90.4 fl (81.6-98.3); Mean Platelet Volume 9.5 fl (7.4-10.4); Platelet Count 124 10x3/uL (150-450); RBC Distribution Width 14.2 % (11.5-14.5); Red Blood Cell (RBC) Count 3.01 10x6/uL (3.90-5.03)
[2021-09-20] MEDS: Levothyroxine Sodium 50 MCG TAB PER TUBE SCH (05:13)
[2021-09-20] MEDS: Propofol 1,000 MG/100 ML VIAL IV PRN ×3 (06:02→23:37)
[2021-09-20 07:44] LABS: Actual Bicarbonate (HCO3a) 24.7 mEq/L (22-28); CO2 Tension 40.2 mmHg (35.0-45.0); Calcium, Ionized (arterial) 1.18 mmol/L (1.12-1.30); Carboxyhemoglobin (COHb) 0.3 gm% (0.0-3.0); Hemoglobin (Hb) 10.1 g/dL (12.0-16.0); O2 Tension (PaO2), arterial 137.6 mmHg (> 70.0); Potassium - ABG Lab 3.6 mmol/L (3.70-5.30); Puncture Site LRA; pH, Arterial 7.41 (7.35-7.45)
[2021-09-20] MEDS: Senokot S 8.6-50 MG TAB PER TUBE SCH ×2 (09:11→21:21)
[2021-09-20] MEDS: Famotidine/PF 20 mg/2ml Vial SLOW IVP SCH ×2 (09:11→21:21)
[2021-09-20] MEDS: Enoxaparin Sodium 40 MG/0.4 ML SYRINGE SC SCH (09:11)
[2021-09-20] MEDS: Polyethylene Glycol 3350 17 GM Packet PER TUBE SCH ×2 (09:33→20:24)
[2021-09-20] MEDS: fentaNYL Citrate-0.9 % NaCl/PF 100 ML IVPB SCH (23:37)
[2021-09-21] MEDS: Aztreonam 2 GM in Sodium Chloride 0.9% 100 ML IVPB SCH ×3 (01:00→17:56)
[2021-09-21 04:26] LABS: ALV-art Gradient 61.275 mmHg (0-20); Actual Bicarbonate (HCO3a) 28.1 mEq/L (22-28); CO2 Tension 45.3 mmHg (35.0-45.0); Calcium, Ionized (arterial) 1.17 mmol/L (1.12-1.30); Carboxyhemoglobin (COHb) 0.2 gm% (0.0-3.0); Hemoglobin (Hb) 9.4 g/dL (12.0-16.0); Potassium - ABG Lab 3.6 mmol/L (3.70-5.30); Puncture Site RRA; pH, Arterial 7.41 (7.35-7.45)
[2021-09-21 05:01] LABS: #Eosinphils 0.2 10x3/uL (0.0-0.5); #Monocytes 0.5 10x3/uL (0.0-1.1); #Neutrophils 3.4 10x3/uL (1.5-8.4); %Basophils 0.6 % (0.0-2.0); %Lymphocytes 21.1 % (18.0-47.0); %Monocytes 9.6 % (0.0-10.0); %Neutrophils 64.3 % (40.0-75.0); Mean Corpuscular HGB CONC 34.5 g/dL (32.0-36.0); Mean Platelet Volume 9.6 fl (7.4-10.4); Platelet Count 131 10x3/uL (150-450); RBC Distribution Width 14.2 % (11.5-14.5); White Blood Cell (WBC) Count 5.3 10x3/uL (3.5-10.5)
[2021-09-21 05:05] LABS: Anion Gap 7 mmol/L (10-20); BUN (Urea Nitrogen) 11 mg/dL (9.8-20.1); Calc. Creatinine Clearance 111 mL/min (70-130); Calcium 8.2 mg/dL (7.8-10.44); Carbon Dioxide 30 mmol/L (23-31); Chloride 102 mmol/L (98-107); Estimated GFR 102; Glucose 109 mg/dL (83-110); Magnesium 1.9 mg/dL (1.6-2.6); Potassium 3.7 mmol/L (3.5-5.1); Sodium 135 mmol/L (136-145)
[2021-09-21] MEDS: Levothyroxine Sodium 50 MCG TAB PER TUBE SCH (05:58)
[2021-09-21] MEDS ORDERED: Magnesium 2 GM/50 ML(in water) 2 GM in Premix Bag 1 BAG IVPB SCH (06:00)
[2021-09-21] MEDS ORDERED: Magnesium 2 GM/50 ML BAG (IN WATER) ONE (06:41)
[2021-09-21] MEDS: Enoxaparin Sodium 40 MG/0.4 ML SYRINGE SC SCH (08:42)
[2021-09-21] MEDS: fentaNYL Citrate-0.9 % NaCl/PF 100 ML IVPB SCH (08:42)
[2021-09-21] MEDS: Polyethylene Glycol 3350 17 GM Packet PER TUBE SCH ×2 (08:42→20:29)
[2021-09-21] MEDS: Famotidine/PF 20 mg/2ml Vial SLOW IVP SCH ×2 (08:42→20:29)
[2021-09-21] MEDS: Senokot S 8.6-50 MG TAB PER TUBE SCH ×2 (08:43→20:29)
[2021-09-21] MEDS ORDERED: Acetaminophen 650 MG/20.3 ML UDCUP PER TUBE PRN (12:15)
[2021-09-21] MEDS: Propofol 1,000 MG/100 ML VIAL IV PRN (12:49)
[2021-09-22] MEDS: Aztreonam 2 GM in Sodium Chloride 0.9% 100 ML IVPB SCH ×3 (01:19→18:55)
[2021-09-22] MEDS: Propofol 1,000 MG/100 ML VIAL IV PRN ×2 (06:12→16:37)
[2021-09-22] MEDS: Levothyroxine Sodium 50 MCG TAB PER TUBE SCH (06:13)
[2021-09-22 06:53] LABS: Actual Bicarbonate (HCO3a) 31.4 mEq/L (22-28); Base Excess (BEa) 5.8 mEq/L (-2.0 to +3.0); CO2 Tension 50.6 mmHg (35.0-45.0); Calcium, Ionized (arterial) 1.18 mmol/L (1.12-1.30); Carboxyhemoglobin (COHb) 0.6 gm% (0.0-3.0); Critical Notified By: CP.PH; Hemoglobin (Hb) 10.8 g/dL (12.0-16.0); O2 Tension (PaO2), arterial 52.7 mmHg (> 70.0); Potassium - ABG Lab 3.8 mmol/L (3.70-5.30); Puncture Site RRA; RapidComm Collect By CP.PH; pH, Arterial 7.41 (7.35-7.45)
[2021-09-22] MEDS: Famotidine/PF 20 mg/2ml Vial SLOW IVP SCH ×2 (08:01→21:23)
[2021-09-22] MEDS: Enoxaparin Sodium 40 MG/0.4 ML SYRINGE SC SCH (08:01)
[2021-09-22] MEDS: Senokot S 8.6-50 MG TAB PER TUBE SCH ×2 (08:02→21:23)
[2021-09-22] MEDS: Polyethylene Glycol 3350 17 GM Packet PER TUBE SCH ×2 (08:02→21:23)
[2021-09-23] MEDS: Aztreonam 2 GM in Sodium Chloride 0.9% 100 ML IVPB SCH ×3 (01:18→16:21)
[2021-09-23 05:29] LABS: #Eosinphils 0.3 10x3/uL (0.0-0.5); #Monocytes 0.5 10x3/uL (0.0-1.1); #Neutrophils 3.2 10x3/uL (1.5-8.4); %Basophils 0.4 % (0.0-2.0); %Eosinophils 5.7 % (0.0-6.0); %Lymphocytes 21.3 % (18.0-47.0); %Monocytes 9.4 % (0.0-10.0); %Neutrophils 62.4 % (40.0-75.0); Hemoglobin 9.5 g/dL (12.0-15.5); Mean Corpuscular HGB CONC 34.8 g/dL (32.0-36.0); Mean Corpuscular Hemoglobin 30.8 pg (27.0-33.0); Mean Corpuscular Volume 88.6 fl (81.6-98.3); Mean Platelet Volume 9.7 fl (7.4-10.4); Platelet Count 151 10x3/uL (150-450); RBC Distribution Width 14.2 % (11.5-14.5); Red Blood Cell (RBC) Count 3.08 10x6/uL (3.90-5.03); White Blood Cell (WBC) Count 5.1 10x3/uL (3.5-10.5)
[2021-09-23 05:38] LABS: Actual Bicarbonate (HCO3a) 30.2 mEq/L (22-28); Base Excess (BEa) 5.5 mEq/L (-2.0 to +3.0); CO2 Tension 44.9 mmHg (35.0-45.0); Calcium, Ionized (arterial) 1.17 mmol/L (1.12-1.30); Carboxyhemoglobin (COHb) 0.2 gm% (0.0-3.0); Critical Notified By: CP.PH; Hemoglobin (Hb) 10.2 g/dL (12.0-16.0); O2 Tension (PaO2), arterial 80.1 mmHg (> 70.0); Potassium - ABG Lab 3.5 mmol/L (3.70-5.30); Puncture Site RRA; RapidComm Collect By CP.PH; pH, Arterial 7.45 (7.35-7.45)
[2021-09-23 05:45] LABS: ALT (SGPT) 12 U/L (8-55); AST (SGOT) 14 U/L (5-34); Albumin 2.8 g/dL (3.4-4.8); Alkaline Phosphatase 78 U/L (40-110); Anion Gap 9 mmol/L (10-20); BUN (Urea Nitrogen) 8 mg/dL (9.8-20.1); Bilirubin, Total 0.3 mg/dL (0.2-1.2); Calc. Creatinine Clearance 98 mL/min (70-130); Calcium 8.8 mg/dL (7.8-10.44); Carbon Dioxide 31 mmol/L (23-31); Chloride 98 mmol/L (98-107); Estimated GFR 103; Globulin 2.1 g/dL (2.4-3.5); Glucose 84 mg/dL (83-110); Potassium 3.6 mmol/L (3.5-5.1); Protein, Total 4.9 g/dL (5.8-8.1); Sodium 134 mmol/L (136-145)
[2021-09-23] MEDS: Levothyroxine Sodium 50 MCG TAB PER TUBE SCH (05:54)
[2021-09-23] MEDS: Propofol 1,000 MG/100 ML VIAL IV PRN ×2 (05:55→15:34)
[2021-09-23] MEDS: Polyethylene Glycol 3350 17 GM Packet PER TUBE SCH ×2 (09:11→21:06)
[2021-09-23] MEDS: Senokot S 8.6-50 MG TAB PER TUBE SCH ×2 (09:11→21:06)
[2021-09-23] MEDS: Enoxaparin Sodium 40 MG/0.4 ML SYRINGE SC SCH (09:14)
[2021-09-23] MEDS: Famotidine/PF 20 mg/2ml Vial SLOW IVP SCH ×2 (09:14→21:06)
[2021-09-23] MEDS: fentaNYL Citrate-0.9 % NaCl/PF 100 ML IVPB SCH (15:34)
[2021-09-24] MEDS: Aztreonam 2 GM in Sodium Chloride 0.9% 100 ML IVPB SCH ×3 (00:17→16:47)
[2021-09-24 04:21] LABS: Actual Bicarbonate (HCO3a) 27.6 mEq/L (22-28); Calcium, Ionized (arterial) 1.16 mmol/L (1.12-1.30); Carboxyhemoglobin (COHb) 0.1 gm% (0.0-3.0); Critical Notified By: CP.PH; Hemoglobin (Hb) 9.5 g/dL (12.0-16.0); O2 Tension (PaO2), arterial 104.3 mmHg (> 70.0); Potassium - ABG Lab 3.6 mmol/L (3.70-5.30); Puncture Site RRA; RapidComm Collect By CP.PH; pH, Arterial 7.44 (7.35-7.45)
[2021-09-24 04:39] LABS: #Eosinphils 0.3 10x3/uL (0.0-0.5); #Monocytes 0.4 10x3/uL (0.0-1.1); #Neutrophils 3.5 10x3/uL (1.5-8.4); %Basophils 0.4 % (0.0-2.0); %Eosinophils 5.9 % (0.0-6.0); %Lymphocytes 21.6 % (18.0-47.0); %Monocytes 8.1 % (0.0-10.0); %Neutrophils 63.5 % (40.0-75.0); Hemoglobin 9.1 g/dL (12.0-15.5); Mean Corpuscular HGB CONC 34.6 g/dL (32.0-36.0); Mean Corpuscular Hemoglobin 30.6 pg (27.0-33.0); Mean Corpuscular Volume 88.6 fl (81.6-98.3); Mean Platelet Volume 9.3 fl (7.4-10.4); Platelet Count 157 10x3/uL (150-450); RBC Distribution Width 14.2 % (11.5-14.5); Red Blood Cell (RBC) Count 2.97 10x6/uL (3.90-5.03); White Blood Cell (WBC) Count 5.5 10x3/uL (3.5-10.5)
[2021-09-24 04:43] LABS: ALT (SGPT) 12 U/L (8-55); AST (SGOT) 14 U/L (5-34); Albumin 2.7 g/dL (3.4-4.8); Alkaline Phosphatase 79 U/L (40-110); Anion Gap 9 mmol/L (10-20); BUN (Urea Nitrogen) 10 mg/dL (9.8-20.1); Bilirubin, Total 0.3 mg/dL (0.2-1.2); Calc. Creatinine Clearance 105 mL/min (70-130); Calcium 8.8 mg/dL (7.8-10.44); Carbon Dioxide 31 mmol/L (23-31); Chloride 99 mmol/L (98-107); Estimated GFR 103; Glucose 104 mg/dL (83-110); Potassium 3.7 mmol/L (3.5-5.1); Protein, Total 4.7 g/dL (5.8-8.1); Sodium 135 mmol/L (136-145)
[2021-09-24] MEDS: Propofol 1,000 MG/100 ML VIAL IV PRN ×2 (05:58→16:18)
[2021-09-24] MEDS: Levothyroxine Sodium 50 MCG TAB PER TUBE SCH (05:58)
[2021-09-24] MEDS: Polyethylene Glycol 3350 17 GM Packet PER TUBE SCH ×2 (08:37→21:56)
[2021-09-24] MEDS: Enoxaparin Sodium 40 MG/0.4 ML SYRINGE SC SCH (08:40)
[2021-09-24] MEDS: Senokot S 8.6-50 MG TAB PER TUBE SCH ×2 (08:41→21:55)
[2021-09-24] MEDS: Famotidine/PF 20 mg/2ml Vial SLOW IVP SCH ×2 (08:41→21:55)
[2021-09-25] MEDS: Aztreonam 2 GM in Sodium Chloride 0.9% 100 ML IVPB SCH ×3 (01:36→17:18)
[2021-09-25] MEDS: Propofol 1,000 MG/100 ML VIAL IV PRN ×2 (03:30→12:12)
[2021-09-25 05:17] LABS: Actual Bicarbonate (HCO3a) 32.1 mEq/L (22-28); Base Excess (BEa) 6.5 mEq/L (-2.0 to +3.0); CO2 Tension 51.2 mmHg (35.0-45.0); Calcium, Ionized (arterial) 1.18 mmol/L (1.12-1.30); Carboxyhemoglobin (COHb) 0.3 gm% (0.0-3.0); Critical Notified By: CP.PH; O2 Tension (PaO2), arterial 93.6 mmHg (> 70.0); Potassium - ABG Lab 3.7 mmol/L (3.70-5.30); Puncture Site RRA; RapidComm Collect By CP.PH; pH, Arterial 7.42 (7.35-7.45)
[2021-09-25] MEDS: Levothyroxine Sodium 50 MCG TAB PER TUBE SCH (06:12)
[2021-09-25] MEDS: Famotidine/PF 20 mg/2ml Vial SLOW IVP SCH ×2 (07:58→20:53)
[2021-09-25] MEDS: Enoxaparin Sodium 40 MG/0.4 ML SYRINGE SC SCH (07:58)
[2021-09-25] MEDS: Senokot S 8.6-50 MG TAB PER TUBE SCH ×2 (07:58→20:53)
[2021-09-25] MEDS: Polyethylene Glycol 3350 17 GM Packet PER TUBE SCH ×2 (07:59→20:53)
[2021-09-25 12:45] VITALS: BMI 23.1
[2021-09-25] MEDS: Dexmedetomidine In 0.9 % NaCl 100 ML IVPB SCH (17:18)
[2021-09-26] MEDS: Aztreonam 2 GM in Sodium Chloride 0.9% 100 ML IVPB SCH ×3 (00:31→18:00)
[2021-09-26] MEDS: Levothyroxine Sodium 50 MCG TAB PER TUBE SCH (05:20)
[2021-09-26 05:56] LABS: Actual Bicarbonate (HCO3a) 30.9 mEq/L (22-28); Base Excess (BEa) 6.8 mEq/L (-2.0 to +3.0); CO2 Tension 42.2 mmHg (35.0-45.0); Calcium, Ionized (arterial) 1.11 mmol/L (1.12-1.30); Hemoglobin (Hb) 9.8 g/dL (12.0-16.0); O2 Tension (PaO2), arterial 65.5 mmHg (> 70.0); Potassium - ABG Lab 3.4 mmol/L (3.70-5.30); Puncture Site RRA; pH, Arterial 7.48 (7.35-7.45)
[2021-09-26] MEDS: Famotidine/PF 20 mg/2ml Vial SLOW IVP SCH ×2 (08:57→20:42)
[2021-09-26] MEDS: Dexmedetomidine In 0.9 % NaCl 100 ML IVPB SCH (08:58)
[2021-09-26] MEDS: Enoxaparin Sodium 40 MG/0.4 ML SYRINGE SC SCH (08:58)
[2021-09-26] MEDS: Senokot S 8.6-50 MG TAB PER TUBE SCH ×2 (08:58→20:14)
[2021-09-26] MEDS: Polyethylene Glycol 3350 17 GM Packet PER TUBE SCH ×2 (08:58→20:14)
[2021-09-27] MEDS: Aztreonam 2 GM in Sodium Chloride 0.9% 100 ML IVPB SCH ×2 (00:39→08:10)
[2021-09-27 03:24] LABS: #Eosinphils 0.2 10x3/uL (0.0-0.5); #Monocytes 0.5 10x3/uL (0.0-1.1); #Neutrophils 6.2 10x3/uL (1.5-8.4); %Basophils 0.4 % (0.0-2.0); %Eosinophils 2.7 % (0.0-6.0); %Lymphocytes 10.8 % (18.0-47.0); %Monocytes 6.3 % (0.0-10.0); %Neutrophils 79.5 % (40.0-75.0); Hemoglobin 9.8 g/dL (12.0-15.5); Mean Corpuscular HGB CONC 33.8 g/dL (32.0-36.0); Mean Corpuscular Hemoglobin 30.5 pg (27.0-33.0); Mean Corpuscular Volume 90.3 fl (81.6-98.3); Mean Platelet Volume 9.2 fl (7.4-10.4); Platelet Count 183 10x3/uL (150-450); RBC Distribution Width 14.2 % (11.5-14.5); Red Blood Cell (RBC) Count 3.21 10x6/uL (3.90-5.03); White Blood Cell (WBC) Count 7.8 10x3/uL (3.5-10.5)
[2021-09-27 03:38] LABS: Anion Gap 11 mmol/L (10-20); BUN (Urea Nitrogen) 12 mg/dL (9.8-20.1); Calc. Creatinine Clearance 106 mL/min (70-130); Carbon Dioxide 32 mmol/L (23-31); Chloride 102 mmol/L (98-107); Estimated GFR 103; Glucose 136 mg/dL (83-110); Magnesium 1.7 mg/dL (1.6-2.6); Potassium 3.8 mmol/L (3.5-5.1); Sodium 141 mmol/L (136-145)
[2021-09-27] MEDS: Dexmedetomidine In 0.9 % NaCl 100 ML IVPB SCH (03:54)
[2021-09-27] MEDS ORDERED: Magnesium 2 GM/50 ML(in water) 2 GM in Premix Bag 1 BAG IVPB SCH ×2 (05:00→08:15)
[2021-09-27] MEDS: Levothyroxine Sodium 50 MCG TAB PER TUBE SCH (05:28)
[2021-09-27] MEDS: Senokot S 8.6-50 MG TAB PER TUBE SCH (07:16)
[2021-09-27] MEDS: Polyethylene Glycol 3350 17 GM Packet PER TUBE SCH (07:16)
[2021-09-27] MEDS: Enoxaparin Sodium 40 MG/0.4 ML SYRINGE SC SCH (08:10)
[2021-09-27] MEDS: Famotidine/PF 20 mg/2ml Vial SLOW IVP SCH (08:10)
[2021-09-27 08:36] VITALS: BP 147/81; TEMP 98.3
[2021-09-27] MEDS ORDERED: Morphine 4 MG/ML VIAL SLOW IVP PRN (14:04)
[2021-09-27] MEDS ORDERED: Lorazepam 2 MG/ML VIAL SLOW IVP PRN ×2 (14:13→14:45)
[2021-09-27] MEDS ORDERED: Lorazepam 2 MG/ML VIAL SLOW IVP SCH (14:30)
[2021-09-27] MEDS ORDERED: Morphine 4 MG/ML VIAL SLOW IVP SCH (14:30)
== END 2021-09-27 16:41 | disposition expired | DRG 870 ==
LOC: CSHERS 13:28 → CSHICU 17:36
PROVIDERS: ADMIT Internal Medicine; ATTEND Internal Medicine
PROC: 5A1955Z Respiratory Ventilation, Greater than 96 Consecutive Hours (ICD-10-PCS; principal; 2021-09-13)
PROC: 0BH18EZ Insertion of Endotracheal Airway into Trachea, Via Natural or Artificial Opening Endoscopic (ICD-10-PCS; 2021-09-13)
PROC: 3E033XZ Introduction of Vasopressor into Peripheral Vein, Percutaneous Approach (ICD-10-PCS; 2021-09-13)
PROC: 0D9670Z Drainage of Stomach with Drainage Device, Via Natural or Artificial Opening (ICD-10-PCS; 2021-09-13)
PROC: 02H633Z Insertion of Infusion Device into Right Atrium, Percutaneous Approach (ICD-10-PCS; 2021-09-13)
PROC: B548ZZA Ultrasonography of Superior Vena Cava, Guidance (ICD-10-PCS; 2021-09-13)
PROC: 3E03329 Introduction of Other Anti-infective into Peripheral Vein, Percutaneous Approach (ICD-10-PCS; 2021-09-13)
PROC: 0BCB8ZZ Extirpation of Matter from Left Lower Lobe Bronchus, Via Natural or Artificial Opening Endoscopic (ICD-10-PCS; 2021-09-17)
PROC: 5A09357 Assistance with Respiratory Ventilation, Less than 24 Consecutive Hours, Continuous Positive Airway Pressure (ICD-10-PCS; 2021-09-26)
DX: A41.9 Sepsis, unspecified organism (principal); R65.21 Severe sepsis with septic shock; J96.21 Acute and chronic respiratory failure with hypoxia; G93.41 Metabolic encephalopathy; J69.0 Pneumonitis due to inhalation of food and vomit; E87.1 Hypo-osmolality and hyponatremia; T17.590A Other foreign object in bronchus causing asphyxiation, initial encounter; J98.11 Atelectasis; E87.3 Alkalosis; G95.9 Disease of spinal cord, unspecified; J45.901 Unspecified asthma with (acute) exacerbation; Z66 Do not resuscitate; Z51.5 Encounter for palliative care; I10 Essential (primary) hypertension; F32.A Depression, unspecified; E78.5 Hyperlipidemia, unspecified; E03.9 Hypothyroidism, unspecified; D64.9 Anemia, unspecified; D69.6 Thrombocytopenia, unspecified; E87.6 Hypokalemia; Z20.822 Contact with and (suspected) exposure to COVID-19; Z88.5 Allergy status to narcotic agent; Z88.8 Allergy status to other drugs, medicaments and biological substances; Z88.2 Allergy status to sulfonamides; Z88.0 Allergy status to penicillin; Z91.018 Allergy to other foods; Z79.899 Other long term (current) drug therapy; Z98.890 Other specified postprocedural states; Z90.710 Acquired absence of both cervix and uterus
CPT/HCPCS: 31500; 36415; 36416; 36556; 36600; 51702; 70450; 71045; 80048; 80053; 80076; 80202; 81003; 82607; 82805; 83605; 83690; 83735; 83935; 84100; 84300; 84439; 84443; 84478; 84484; 85025; 87040; 87070; 87081; 87086; 87149; 87205; 93005; 94002; 94003; 94660; 94667; 94668; 94760; 96361; 96365; 96366; 96375; 97139; 99292; J1120; J1650; J1940; J1956; J2060; J2270; J2704; J3370; J3475; J3480; J3490; J7050; S0028; U0002; U0003; U0005